=== PATIENT | female | born 1995 ===

== ENCOUNTER → 2017-10-14 | Outpatient (CLI) | payer OTHER ==
[~2017-10-14] MED LIST: CLON1 PO; ESCI10 PO; LEVE500 PO; PRAZ2 PO
[2017-10-17 04:11] LABS: CHLAMYDIA TRACHOMATIS, NAA Positive (Negative); NEISSERIA GONORRHOEAE, NAA Negative (Negative)
== END ==
LOC: LAB SHORT 11:04 → LAB 11:04
PROVIDERS: Registered Nurse Community Health
DX: Z11.3 Encounter for screening for infections with a predominantly sexual mode of transmission (principal); Z12.4 Encounter for screening for malignant neoplasm of cervix
CPT/HCPCS: 87491; 87591

== ENCOUNTER 2017-12-10 09:40 | Observation (INO) | payer OTHER ==
[~2017-12-10] VITALS: Ht 149.9 cm; Wt 59.0 kg
[2017-12-10] MEDS ORDERED: HYDHCL25 PO (10:03)
[2017-12-10] MEDS ORDERED: DOXE10 PO (10:04)
[2017-12-10] MEDS ORDERED: Seroquel400 MG PO (10:04)
[2017-12-10 10:45] LABS: BASOPHILS ABSOLUTE AUTO 0.04 K/mm3 (0.00-0.23); BASOPHILS PERCENT AUTO 1 % (0-2); EOSINOPHILS ABSOLUTE AUTO 0.01 K/mm3 (0.00-0.68); EOSINOPHILS PERCENT AUTO 0 % (0-6); Hematocrit 35.5 % (33.0-51.0); IMMATURE GRAN ABSOLUTE AUTO 0.02 K/mm3 (0.00-0.10); IMMATURE GRAN PERCENT AUTO 0 % (0-1); LYMPHOCYTES ABSOLUTE AUTO 1.86 K/mm3 (0.84-5.20); LYMPHOCYTES PERCENT AUTO 33 % (21-46); MONOCYTES ABSOLUTE AUTO 0.49 K/mm3 (0.16-1.47); MONOCYTES PERCENT AUTO 9 % (4-13); Mean Corpuscular HGB 28.8 pg (26.0-34.0); Mean Corpuscular HGB Conc 33.8 g/dL (31.5-36.5); Mean Corpuscular Volume 85 fL (80-100); Mean Platelet Volume 9.9 fL (9.1-12.4); NEUTROPHILS ABSOLUTE AUTO 3.16 K/mm3 (1.96-9.15); NEUTROPHILS PERCENT AUTO 57 % (41-73); Platelet Count 225 K/mm3 (150-400); RDW Coefficient Variation 12.2 % (11.7-14.2); RDW Standard Deviation 37.8 fL (35.1-46.3); Red Blood Cell Count 4.16 M/mm3 (3.80-5.20); White Blood Cell Count 5.58 K/mm3 (4.00-11.30)
[2017-12-10 10:53] LABS: Bilirubin, Urine Neg (Neg); Blood, Urine Neg (Neg); Glucose Qualitative, Urine Neg (Neg); Ketones, Urine Neg (Neg); Leukocyte Esterase, Urine Neg (Neg); Nitrite, Urine Neg (Neg); Protein, Urine Neg (Neg); Source, Urine Voided; Urobilinogen, Urine NORM (Normal)
[2017-12-10 11:09] LABS: Alanine Aminotransfer (ALT/SGP 14 U/L (12-78); Albumin, Blood 3.8 g/dL (3.4-5.0); Albumin/Globulin Ratio 1.3 (0.8-1.8); Alk Phos 96 U/L (50-136); Anion Gap 10 mmol/L (6-16); Aspartate Aminotrans (AST/SGOT 11 U/L (12-37); Bilirubin, Total 0.7 mg/dL (0.1-1.0); Blood Urea Nitrogen 9 mg/dL (8-24); Bun/Creatinine Ratio 13.6 (12.0-20.0); CO2, Blood 24 mmol/L (21-32); Calcium, Blood 8.2 mg/dL (8.5-10.1); Chloride, Blood 109 mmol/L (98-108); Creatinine, Blood 0.66 mg/dL (0.40-1.00); Ethanol (Alcohol), Blood, Med <3 mg/dL; Glomerular Filtration Rate >60 (60-); Glucose, Blood 102 mg/dL (70-99); Potassium, Blood 3.7 mmol/L (3.5-5.5); Salicylate <1.7 mg/dL (2.8-20.0); Sodium, Blood 143 mmol/L (136-145); Total Protein, Blood 6.8 g/dL (6.4-8.2)
[2017-12-10 11:15] LABS: Thyroid Stimulating Hormone 0.911 uIU/mL (0.360-4.800)
[2017-12-10 11:18] LABS: Appearance, Urine Clear (Clear); Color, Urine Yellow (P-Yellow)
[2017-12-10 11:27] LABS: Acetaminophen, Random <2.0 ug/mL (10.0-30.0)
[2017-12-10 12:12] LABS: U Amphetamine Screen Not Detected; U Barbituate Screen Not Detected; U Benzodiazapine Screen Not Detected; U Cocaine Screen Not Detected; U Methamphetamine Screen Not Detected
[2017-12-10 12:13] LABS: U Buprenorphine Screen Not Detected; U Cannabinoids Screen Not Detected; U Methadone Screen Not Detected; U Opiates Screen Not Detected; U Oxycodone Screen Not Detected; U Phencyclidine Screen Not Detected; U Propoxyphene Screen Not Detected
== END 2017-12-11 07:28 ==
LOC: ER 09:40 → ERHOLD 09:41
PROVIDERS: Emergency Medicine
DX: R45.851 Suicidal ideations (principal); F20.3 Undifferentiated schizophrenia; F43.10 Post-traumatic stress disorder, unspecified; Z88.8 Allergy status to other drugs, medicaments and biological substances; F17.290 Nicotine dependence, other tobacco product, uncomplicated; Z79.899 Other long term (current) drug therapy
CPT/HCPCS: 80053; 81003; 81025; 84443; 85025; 93005; 93010; 99285-25; G0378; G0480; Q3014

== ENCOUNTER 2018-01-29 08:58 | Emergency (ER) | payer OTHER ==
[~2018-01-29] VITALS: Ht 149.9 cm; Wt 62.6 kg
[~2018-01-29 08:58] MED LIST changes: +DOXE10 PO; +HYDHCL25 PO; +Seroquel400 MG PO
[2018-01-29 10:31] LABS: BASOPHILS ABSOLUTE AUTO 0.06 K/mm3 (0.00-0.23); BASOPHILS PERCENT AUTO 1 % (0-2); EOSINOPHILS PERCENT AUTO 0 % (0-6); Hematocrit 37.2 % (33.0-51.0); Hemoglobin 12.6 g/dL (11.5-16.0); IMMATURE GRAN ABSOLUTE AUTO 0.03 K/mm3 (0.00-0.10); IMMATURE GRAN PERCENT AUTO 1 % (0-1); LYMPHOCYTES ABSOLUTE AUTO 1.32 K/mm3 (0.84-5.20); LYMPHOCYTES PERCENT AUTO 20 % (21-46); MONOCYTES ABSOLUTE AUTO 0.55 K/mm3 (0.16-1.47); MONOCYTES PERCENT AUTO 8 % (4-13); Mean Corpuscular HGB Conc 33.9 g/dL (31.5-36.5); Mean Corpuscular Volume 86 fL (80-100); Mean Platelet Volume 9.8 fL (9.1-12.4); NEUTROPHILS PERCENT AUTO 71 % (41-73); Platelet Count 247 K/mm3 (150-400); RDW Coefficient Variation 12.3 % (11.7-14.2); RDW Standard Deviation 38.7 fL (35.1-46.3); Red Blood Cell Count 4.35 M/mm3 (3.80-5.20); White Blood Cell Count 6.66 K/mm3 (4.00-11.30)
[2018-01-29 10:57] LABS: Alanine Aminotransfer (ALT/SGP 24 U/L (12-78); Albumin, Blood 3.8 g/dL (3.4-5.0); Albumin/Globulin Ratio 1.1 (0.8-1.8); Alk Phos 67 U/L (50-136); Anion Gap 5 mmol/L (6-16); Aspartate Aminotrans (AST/SGOT 16 U/L (12-37); Blood Urea Nitrogen 10 mg/dL (8-24); Bun/Creatinine Ratio 18.2 (12.0-20.0); CO2, Blood 25 mmol/L (21-32); Calcium, Blood 8.7 mg/dL (8.5-10.1); Chloride, Blood 108 mmol/L (98-108); Creatinine, Blood 0.55 mg/dL (0.40-1.00); Globulin, Blood 3.5 g/dL (2.2-4.0); Glomerular Filtration Rate >60 (60-); Glucose, Blood 90 mg/dL (70-99); Potassium, Blood 3.9 mmol/L (3.5-5.5); Sodium, Blood 138 mmol/L (136-145); Total Protein, Blood 7.3 g/dL (6.4-8.2)
[2018-01-29 11:21] LABS: Beta HCG, Quantitative, Serum 29082 mIU/mL (0-3)
== END 2018-01-29 11:52 | disposition home or self-care (01) ==
LOC: ER 08:58
PROVIDERS: Physician Assistant
DX: O20.0 Threatened abortion (principal); O99.341 Other mental disorders complicating pregnancy, first trimester; F20.9 Schizophrenia, unspecified; O99.331 Smoking (tobacco) complicating pregnancy, first trimester; F17.290 Nicotine dependence, other tobacco product, uncomplicated; Z79.899 Other long term (current) drug therapy; Z88.8 Allergy status to other drugs, medicaments and biological substances; Z3A.01 Less than 8 weeks gestation of pregnancy
CPT/HCPCS: 36415; 76801; 76817; 80053; 81000; 81025; 84702; 85025; 86850; 86900; 86901; 99284-25

== ENCOUNTER 2020-02-26 19:34 | Emergency (ER) | payer OTHER ==
[~2020-02-26] VITALS: Ht 149.9 cm; Wt 64.9 kg
[2020-02-26 20:33] LABS: BASOPHILS ABSOLUTE AUTO 0.04 K/mm3 (0.00-0.23); BASOPHILS PERCENT AUTO 1 % (0-2); EOSINOPHILS ABSOLUTE AUTO 0.15 K/mm3 (0.00-0.68); EOSINOPHILS PERCENT AUTO 3 % (0-6); Hematocrit 40.8 % (33.0-51.0); Hemoglobin 13.6 g/dL (11.5-16.0); IMMATURE GRAN ABSOLUTE AUTO 0.01 K/mm3 (0.00-0.10); IMMATURE GRAN PERCENT AUTO 0 % (0-1); LYMPHOCYTES ABSOLUTE AUTO 1.78 K/mm3 (0.84-5.20); LYMPHOCYTES PERCENT AUTO 31 % (21-46); MONOCYTES ABSOLUTE AUTO 0.53 K/mm3 (0.16-1.47); MONOCYTES PERCENT AUTO 9 % (4-13); Mean Corpuscular HGB Conc 33.3 g/dL (31.5-36.5); Mean Corpuscular Volume 84 fL (80-100); Mean Platelet Volume 9.8 fL (9.1-12.4); NEUTROPHILS ABSOLUTE AUTO 3.26 K/mm3 (1.96-9.15); NEUTROPHILS PERCENT AUTO 57 % (41-73); Platelet Count 248 K/mm3 (150-400); RDW Coefficient Variation 11.9 % (11.7-14.2); RDW Standard Deviation 36.4 fL (35.1-46.3); Red Blood Cell Count 4.86 M/mm3 (3.80-5.20); White Blood Cell Count 5.77 K/mm3 (4.00-11.30)
[2020-02-26 20:52] LABS: Alanine Aminotransfer (ALT/SGP 19 U/L (12-78); Albumin, Blood 4.2 g/dL (3.4-5.0); Albumin/Globulin Ratio 1.3 (0.8-1.8); Alk Phos 95 U/L (50-136); Anion Gap 4 mmol/L (6-16); Aspartate Aminotrans (AST/SGOT 10 U/L (12-37); Bilirubin, Total 0.9 mg/dL (0.1-1.0); Blood Urea Nitrogen 11 mg/dL (8-24); Bun/Creatinine Ratio 14.6 (12.0-20.0); CO2, Blood 28 mmol/L (21-32); Calcium, Blood 9.5 mg/dL (8.5-10.1); Chloride, Blood 111 mmol/L (98-108); Creatinine, Blood 0.75 mg/dL (0.40-1.00); Globulin, Blood 3.2 g/dL (2.2-4.0); Glomerular Filtration Rate >60 (60-); Glucose, Blood 96 mg/dL (70-99); Potassium, Blood 3.8 mmol/L (3.5-5.5); Sodium, Blood 143 mmol/L (136-145); Total Protein, Blood 7.4 g/dL (6.4-8.2)
== END 2020-02-26 21:29 | disposition home or self-care (01) ==
LOC: ER 19:34
PROVIDERS: Physician Assistant
DX: R51.9 Headache, unspecified (principal); F20.9 Schizophrenia, unspecified; F43.10 Post-traumatic stress disorder, unspecified; F17.290 Nicotine dependence, other tobacco product, uncomplicated; Z88.8 Allergy status to other drugs, medicaments and biological substances; Z79.899 Other long term (current) drug therapy
CPT/HCPCS: 36415; 80053; 85025; 99284

== ENCOUNTER 2020-12-23 11:04 | Emergency (ER) | payer OTHER ==
[~2020-12-23] VITALS: Ht 149.9 cm; Wt 71.7 kg
[~2020-12-23 11:04] MED LIST changes: +LAMOTRIGINE100 M1 PO; +Naprosyn500 MG PO; +SERT100 PO
[2020-12-23 11:40] LABS: BASOPHILS ABSOLUTE AUTO 0.04 K/mm3 (0.00-0.23); BASOPHILS PERCENT AUTO 1 % (0-2); EOSINOPHILS ABSOLUTE AUTO 0.09 K/mm3 (0.00-0.68); EOSINOPHILS PERCENT AUTO 1 % (0-6); Hematocrit 39.1 % (33.0-51.0); Hemoglobin 13.2 g/dL (11.5-16.0); IMMATURE GRAN ABSOLUTE AUTO 0.02 K/mm3 (0.00-0.10); IMMATURE GRAN PERCENT AUTO 0 % (0-1); LYMPHOCYTES ABSOLUTE AUTO 1.58 K/mm3 (0.84-5.20); LYMPHOCYTES PERCENT AUTO 19 % (21-46); MONOCYTES ABSOLUTE AUTO 0.56 K/mm3 (0.16-1.47); MONOCYTES PERCENT AUTO 7 % (4-13); Mean Corpuscular HGB 28.8 pg (26.0-34.0); Mean Corpuscular HGB Conc 33.8 g/dL (31.5-36.5); Mean Corpuscular Volume 85 fL (80-100); Mean Platelet Volume 10.3 fL (9.1-12.4); NEUTROPHILS ABSOLUTE AUTO 5.88 K/mm3 (1.96-9.15); NEUTROPHILS PERCENT AUTO 72 % (41-73); Platelet Count 275 K/mm3 (150-400); RDW Coefficient Variation 12.6 % (11.7-14.2); RDW Standard Deviation 38.5 fL (35.1-46.3); Red Blood Cell Count 4.59 M/mm3 (3.80-5.20); White Blood Cell Count 8.17 K/mm3 (4.00-11.30)
[2020-12-23 12:08] LABS: Source, Urine Clean Catch
[2020-12-23 12:18] LABS: Anion Gap 5 mmol/L (6-16); Blood Urea Nitrogen 8 mg/dL (8-24); Bun/Creatinine Ratio 15.2 (12.0-20.0); CO2, Blood 25 mmol/L (21-32); Calcium, Blood 8.6 mg/dL (8.5-10.1); Chloride, Blood 107 mmol/L (98-108); Creatinine, Blood 0.53 mg/dL (0.40-1.00); Glomerular Filtration Rate >60 (60-); Glucose, Blood 84 mg/dL (70-99); Potassium, Blood 4.6 mmol/L (3.5-5.5); Sodium, Blood 137 mmol/L (136-145)
[2020-12-23 12:21] LABS: Beta HCG, Quantitative, Serum 89823 mIU/mL (0-3)
[2020-12-23 12:26] LABS: Appearance, Urine Clear (Clear); Bilirubin, Urine Neg (Neg); Blood, Urine Neg (Neg); Color, Urine Yellow (P-Yellow); Glucose Qualitative, Urine Neg (Neg); Ketones, Urine Neg (Neg); Leukocyte Esterase, Urine Neg (Neg); Nitrite, Urine Neg (Neg); Protein, Urine Neg (Neg); Specific Gravity, Urine 1.015 (1.003-1.022); Urobilinogen, Urine NORM (Normal); pH, Urine 6.5 (5.0-8.0)
[2020-12-23] MEDS ORDERED: PRENATAL TABLE1 EAC2 PO (12:35)
[2020-12-23] MEDS ORDERED: DICLEGIS DR 101 EAC1 PO (13:22)
== END 2020-12-23 13:38 | disposition home or self-care (01) ==
LOC: ER 11:04
PROVIDERS: Physician Assistant
DX: O99.891 Other specified diseases and conditions complicating pregnancy (principal); R10.9 Unspecified abdominal pain; M54.5 Low back pain; O21.9 Vomiting of pregnancy, unspecified; Z3A.01 Less than 8 weeks gestation of pregnancy; Z88.8 Allergy status to other drugs, medicaments and biological substances; Z79.899 Other long term (current) drug therapy
CPT/HCPCS: 36415; 80048; 81003; 84702; 85025; 99284

== ENCOUNTER → 2021-06-27 | Outpatient (CLI) | payer OTHER ==
[~2021-06-27] MED LIST changes: +DICLEGIS DR 101 EAC1 PO; +PRENATAL TABLE1 EAC2 PO
== END | disposition home or self-care (01) ==
LOC: LAB SHORT 11:36 → LAB 11:36
DX: Z34.83 Encounter for supervision of other normal pregnancy, third trimester (principal)
CPT/HCPCS: 87081; 87150

== ENCOUNTER 2021-07-28 04:44 | Inpatient (IN) | payer OTHER ==
[~2021-07-28] VITALS: Ht 149.9 cm; Wt 73.2 kg
[2021-07-28] MEDS ORDERED: METF500 PO (05:09)
[2021-07-28] MEDS ORDERED: FERSU300 PO (05:09)
[2021-07-28 05:44] LABS: BASOPHILS ABSOLUTE AUTO 0.03 K/mm3 (0.00-0.23); BASOPHILS PERCENT AUTO 0 % (0-2); EOSINOPHILS ABSOLUTE AUTO 0.09 K/mm3 (0.00-0.68); EOSINOPHILS PERCENT AUTO 1 % (0-6); Hematocrit 33.1 % (33.0-51.0); Hemoglobin 10.3 g/dL (11.5-16.0); IMMATURE GRAN ABSOLUTE AUTO 0.18 K/mm3 (0.00-0.10); IMMATURE GRAN PERCENT AUTO 2 % (0-1); LYMPHOCYTES ABSOLUTE AUTO 2.08 K/mm3 (0.84-5.20); LYMPHOCYTES PERCENT AUTO 23 % (21-46); MONOCYTES ABSOLUTE AUTO 0.75 K/mm3 (0.16-1.47); MONOCYTES PERCENT AUTO 8 % (4-13); Mean Corpuscular HGB 22.9 pg (26.0-34.0); Mean Corpuscular HGB Conc 31.1 g/dL (31.5-36.5); Mean Corpuscular Volume 74 fL (80-100); Mean Platelet Volume 11.2 fL (9.1-12.4); NEUTROPHILS ABSOLUTE AUTO 5.77 K/mm3 (1.96-9.15); NEUTROPHILS PERCENT AUTO 65 % (41-73); Platelet Count 196 K/mm3 (150-400); RDW Coefficient Variation 15.6 % (11.7-14.2); RDW Standard Deviation 41.5 fL (35.1-46.3); Red Blood Cell Count 4.49 M/mm3 (3.80-5.20)
[2021-07-28 06:51] LABS: Influenza A, PCR NEGATIVE (NEGATIVE); Influenza B, PCR NEGATIVE (NEGATIVE); Resp Syncytial Virus, PCR NEGATIVE (NEGATIVE); SARS-Cov-2 (COVID-19) PCR, MMC NEGATIVE (NEGATIVE)
[2021-07-28 21:29] LABS: PCO2 Cord - Venous 45.8 mmHg (40-50); PO2 Cord - Venous 25.9 mmHg (28-32)
[2021-07-29 05:28] LABS: Hemoglobin 10.4 g/dL (11.5-16.0); Mean Corpuscular HGB 22.8 pg (26.0-34.0); Mean Corpuscular HGB Conc 30.6 g/dL (31.5-36.5); Mean Corpuscular Volume 75 fL (80-100); Platelet Count 199 K/mm3 (150-400); RDW Coefficient Variation 15.5 % (11.7-14.2); RDW Standard Deviation 41.7 fL (35.1-46.3); Red Blood Cell Count 4.56 M/mm3 (3.80-5.20); White Blood Cell Count 17.23 K/mm3 (4.00-11.30)
[2021-07-29 05:33] LABS: Mean Platelet Volume 11.4 fL (9.1-12.4)
--- NOTE | 2021-07-30 00:51 | NUR ---
DOCK SUPERVISOR NOTIFED THIS NURSE OF LOW BP. TALKED TO PT, SHE STATED THAT SHE DOSE "SEE STARS" WHEN CHANGING POSITIONS. PT STATED THAT HER NORMAL BP RUNS LOW. TALKED WITH PT ABOUT IMPORTANCE OF BEING CAREFULL WHEN CHANGING POSITIONS, NOT GETTING UP OUT OF BED QUICKLY. BP TAKEN AGAIN. PT DENIES BEING SOB, BLEEDING W/IN NORMAL RANGE, FUNDUS FIRM AND MIDLINE.
== END 2021-07-30 11:05 | disposition home or self-care (01) | DRG 807 ==
LOC: OBS 04:44 → BC 04:45 → OBS 04:49 → BC 04:51
PROVIDERS: Obstetrics & Gynecology; ADMIT Advanced Practice Midwife
PROC: 10E0XZZ Delivery of Products of Conception, External Approach (ICD-10-PCS; principal; 2021-07-28)
PROC: 10907ZC Drainage of Amniotic Fluid, Therapeutic from Products of Conception, Via Natural or Artificial Opening (ICD-10-PCS; 2021-07-28)
PROC: 10H07YZ Insertion of Other Device into Products of Conception, Via Natural or Artificial Opening (ICD-10-PCS; 2021-07-28)
PROC: 3E033VJ Introduction of Other Hormone into Peripheral Vein, Percutaneous Approach (ICD-10-PCS; 2021-07-28)
PROC: 3E0R33Z Introduction of Anti-inflammatory into Spinal Canal, Percutaneous Approach (ICD-10-PCS; 2021-07-28)
PROC: 3E0R3BZ Introduction of Anesthetic Agent into Spinal Canal, Percutaneous Approach (ICD-10-PCS; 2021-07-28)
PROC: 00HU33Z Insertion of Infusion Device into Spinal Canal, Percutaneous Approach (ICD-10-PCS; 2021-07-28)
DX: O24.425 Gestational diabetes mellitus in childbirth, controlled by oral hypoglycemic drugs (principal); Z37.0 Single live birth; O99.02 Anemia complicating childbirth; Z20.822 Contact with and (suspected) exposure to COVID-19; Z3A.38 38 weeks gestation of pregnancy; O99.334 Smoking (tobacco) complicating childbirth; O66.0 Obstructed labor due to shoulder dystocia; F17.200 Nicotine dependence, unspecified, uncomplicated; D64.9 Anemia, unspecified; O99.344 Other mental disorders complicating childbirth; Z67.40 Type O blood, Rh positive; F31.9 Bipolar disorder, unspecified; J45.909 Unspecified asthma, uncomplicated; O99.52 Diseases of the respiratory system complicating childbirth; Z88.8 Allergy status to other drugs, medicaments and biological substances; Z90.49 Acquired absence of other specified parts of digestive tract; Z79.84 Long term (current) use of oral hypoglycemic drugs; Z79.899 Other long term (current) drug therapy
CPT/HCPCS: 0241U; 36415; 51702; 82803; 82947; 85025; 85027; 86850; 86900; 86901; A9270; J1885; J2001; J2210; J2405; J3010; J7120

== ENCOUNTER 2022-08-26 17:29 | Inpatient (IN) | payer OTHER ==
[~2022-08-26] VITALS: Ht 149.9 cm; Wt 69.8 kg
[~2022-08-26 17:29] MED LIST changes: +FERSU300 PO; +METF500 PO
[2022-08-26 17:53] LABS: BASOPHILS ABSOLUTE AUTO 0.02 K/mm3 (0.00-0.23); BASOPHILS PERCENT AUTO 0 % (0-2); EOSINOPHILS ABSOLUTE AUTO 0.11 K/mm3 (0.00-0.68); EOSINOPHILS PERCENT AUTO 2 % (0-6); Hematocrit 39.9 % (33.0-51.0); Hemoglobin 13.1 g/dL (11.5-16.0); IMMATURE GRAN ABSOLUTE AUTO 0.03 K/mm3 (0.00-0.10); IMMATURE GRAN PERCENT AUTO 1 % (0-1); LYMPHOCYTES ABSOLUTE AUTO 0.76 K/mm3 (0.84-5.20); LYMPHOCYTES PERCENT AUTO 13 % (21-46); MONOCYTES ABSOLUTE AUTO 0.53 K/mm3 (0.16-1.47); MONOCYTES PERCENT AUTO 9 % (4-13); Mean Corpuscular HGB Conc 32.8 g/dL (31.5-36.5); Mean Corpuscular Volume 82 fL (80-100); Mean Platelet Volume 9.4 fL (9.1-12.4); NEUTROPHILS ABSOLUTE AUTO 4.51 K/mm3 (1.96-9.15); NEUTROPHILS PERCENT AUTO 76 % (41-73); Platelet Count 225 K/mm3 (150-400); RDW Coefficient Variation 12.7 % (11.7-14.2); RDW Standard Deviation 38.4 fL (35.1-46.3); Red Blood Cell Count 4.86 M/mm3 (3.80-5.20); White Blood Cell Count 5.96 K/mm3 (4.00-11.30)
[2022-08-26 18:25] LABS: Albumin/Globulin Ratio 1.2 (0.8-1.8); Bun/Creatinine Ratio 18.9 (12.0-20.0); Calcium, Blood 8.1 mg/dL (8.5-10.1); Creatinine, Blood 0.58 mg/dL (0.40-1.00); Globulin, Blood 3.2 g/dL (2.2-4.0); Potassium, Blood 3.9 mmol/L (3.5-5.5); Total Protein, Blood 7.2 g/dL (6.4-8.2)
[2022-08-26 20:26] LABS: Source, Urine Clean Catch
[2022-08-26 20:28] LABS: Bilirubin, Urine Neg (Neg); Blood, Urine 1+ (Neg); Glucose Qualitative, Urine Neg (Neg); Ketones, Urine Neg (Neg); Leukocyte Esterase, Urine 1+ (Neg); Nitrite, Urine Neg (Neg); Protein, Urine 1+ (Neg); Specific Gravity, Urine 1.005 (1.003-1.022); Urobilinogen, Urine NORM (Normal)
[2022-08-26 20:37] LABS: Appearance, Urine Hazy (Clear); Color, Urine Pale Yellow (P-Yellow)
[2022-08-26 20:38] LABS: Bacteria Few /hpf; Red Blood Cells, Urine 0-2 /hpf (0-2); Squamous Epithelial Cells Mod /hpf (Few); White Blood Cells, Urine 0-2 /hpf (0-5)
[2022-08-26 20:51] LABS: U Amphetamine Screen Not Detected; U Barbituate Screen Not Detected; U Benzodiazapine Screen Not Detected; U Buprenorphine Screen Not Detected; U Cannabinoids Screen Not Detected; U Cocaine Screen Not Detected; U Methadone Screen Not Detected; U Methamphetamine Screen Not Detected; U Opiates Screen Not Detected; U Oxycodone Screen Not Detected; U Phencyclidine Screen Not Detected; U Propoxyphene Screen Not Detected
--- NOTE | 2022-08-26 21:52 | NUR ---
PT ARRIVES TO ICU ROOM 6 FROM ER @6372. REPORT RECIEVED FROM BRADY CARRANZA. TRANSFERRED TO ICU BED EQUIPPED W/SEIZURE PADS. PT IS A&O X4. ISAC IS AT BEDSIDE. CONTINUOUS CARDIAC MONITORING. NSR 80'S, SBP STABLE, MAP >65, RR <20, SPO2 >94%. IV ACCESS: 20GA RAC PATENT W/SALINE LOCK, 20GA RFA PATENT W/SALINE LOCK. PT AND FAMILY ORIENTED TO UNIT AND CALL LIGHT. HOME MEDICATIONS SENT W/.
[2022-08-26] MEDS ORDERED: LAMO100 (22:38)
[2022-08-26] MEDS ORDERED: CLON.5 PO (22:41)
[2022-08-26] MEDS ORDERED: SERT100 PO (22:42)
--- NOTE | 2022-08-26 22:48 | NUR ---
UPDATE PT HAD TONIC-CLONIC SEIZURE THAT LASTED APPROX 30 SECONDS. THIS RN POSITIONED PT ON RIGHT SIDE W/SUCTION AVAILABLE. POSTICAL PHASE LASTED ABOUT A MINUTE. PT WAS REORIENTED AND WAS ANSWERING QUESTIONS APPROPRIATELY. AT BEDSIDE.
[2022-08-27 03:18] LABS: BASOPHILS ABSOLUTE AUTO 0.02 K/mm3 (0.00-0.23); BASOPHILS PERCENT AUTO 0 % (0-2); EOSINOPHILS ABSOLUTE AUTO 0.16 K/mm3 (0.00-0.68); EOSINOPHILS PERCENT AUTO 3 % (0-6); Hematocrit 35.9 % (33.0-51.0); Hemoglobin 11.9 g/dL (11.5-16.0); IMMATURE GRAN ABSOLUTE AUTO 0.02 K/mm3 (0.00-0.10); IMMATURE GRAN PERCENT AUTO 0 % (0-1); LYMPHOCYTES ABSOLUTE AUTO 1.13 K/mm3 (0.84-5.20); LYMPHOCYTES PERCENT AUTO 24 % (21-46); MONOCYTES ABSOLUTE AUTO 0.58 K/mm3 (0.16-1.47); MONOCYTES PERCENT AUTO 12 % (4-13); Mean Corpuscular HGB 27.1 pg (26.0-34.0); Mean Corpuscular HGB Conc 33.1 g/dL (31.5-36.5); Mean Corpuscular Volume 82 fL (80-100); Mean Platelet Volume 9.3 fL (9.1-12.4); NEUTROPHILS ABSOLUTE AUTO 2.79 K/mm3 (1.96-9.15); NEUTROPHILS PERCENT AUTO 60 % (41-73); Platelet Count 197 K/mm3 (150-400); RDW Coefficient Variation 12.7 % (11.7-14.2); RDW Standard Deviation 38.3 fL (35.1-46.3); Red Blood Cell Count 4.39 M/mm3 (3.80-5.20)
[2022-08-27 03:35] LABS: Albumin, Blood 3.4 g/dL (3.4-5.0); Albumin/Globulin Ratio 1.2 (0.8-1.8); Bilirubin, Total 0.7 mg/dL (0.1-1.0); Bun/Creatinine Ratio 19.5 (12.0-20.0); Calcium, Blood 7.3 mg/dL (8.5-10.1); Creatinine, Blood 0.51 mg/dL (0.40-1.00); Globulin, Blood 2.9 g/dL (2.2-4.0); Magnesium, Blood 2.2 mg/dL (1.6-2.4); Potassium, Blood 3.5 mmol/L (3.5-5.5); Total Protein, Blood 6.3 g/dL (6.4-8.2)
--- NOTE | 2022-08-27 05:46 | NUR ---
SUMMARY NEURO/PSYCH/MOBILITY: PT HAD ONE SEIZURE DURING SHIFT (SEE NOTE), CONFUSED DURING POSTICTAL STATE BUT REORIENTED. A&O X4, RESTING COMFORTABLY, AROUSABLE TO VERBAL STIMULI. PT ABLE TO AMBULATE W/NURSE SBA TO COMMODE. ABLE TO MAKE NEEDS KNOWN. PLEASANT AND COOPERATIVE W/CARE. PT HAD PAIN IN HER ABDOMEN W/VOMITING AND NAUSEA. MEDICATED PER EMAR. NO FURTHER VOMITING AND SOME RELIEF FROM NAUSEA AND ABDOMINAL PAIN. TMAX 98.5. PERRL. RESP: RR 20'S, SPO2 >94% ON RA. LUNGS CLEAR THROUGHOUT. CARDIAC: CONTINUOUS CARDIAC MONITORING. NSR 80'S, SBP STABLE, MAP >65. PULSES STRONG AND EQUAL. GI: VOMITED TWICE BILE TINGED LIQUID. MEDICATED PER EMAR. NO BM THIS SHIFT. PT STATES SHE HAS ABDOMINAL PAIN AND HAS HAD A "STOMACH BUG" FOR THE PAST FEW DAYS. : PT ABLE TO AMBULATE TO THE COMMODE AND VOID W/O DIFFICULTY. SKIN: GOOD OVERALL CONDITION. IV ACCESS: 20GA RAC PATENT W/SALINE LOCK. 20GA RFA 20GA W/SALINE LOCK.
--- NOTE | 2022-08-27 10:26 | NUR ---
CARE OF PT ASSUMED AT 0700. PT SLEEPING, AWAKENS TO VOICE, DROWSY. DENIES C/O NAUSEA. C/O LOWER ABD CRAMPS, PT STATES IT FEELS LIKE SHE NEED TO HAVE A BOWEL MOVEMENT. DR PARISI CALLED FOR DIET ORDER, PT REQUESTED FOOD AND WATER. DIET PLACED. AFTER A FEW BITES OF BREAKFAST PT VOMITED 40CC. ZOFRAN GIVEN. PT SBA TO TOILET W 2 LIQUID BM'S. WILL HOLD FOOD FOR NOW. LR STARTED AT 100CC/HR. BOTH DR PARISI AND DR ALBERTS IN TO SEE PT. NO SEIZURE ACTIVITY THIS SHIFT. PT STATES SHE IS RECOVERING FROM MASTITIS AND IS BREAST FEEDING, PT CHANGED TO PCU STATUS.
--- NOTE | 2022-08-27 12:20 | NUR ---
PT SLEEPING W/O COMPLAINTS. NEURO ASSESSMENT WNL.
--- NOTE | 2022-08-27 12:44 | NUR ---
PT USED CALL LIGHT WHICH WAS IMMEDIATLEY ANSWERED. PT FOUND WITH CHEST FORWARD, MINIMALLY SHAKING, WITH FOAM IN MOUTH. GRAPHICS COORDINATOR CALLED TO BEDSIDE. SEIZURE ACTIVITY LASTED LESS THAN 30SEC. VALIUM 5MG GIVEN. PT ABLE TO FOLLOW COMMANDS AND ANSWER QUESTIONS APPROPRIATELY FOLLOWING SEIZURE ACTIVITY. DR ALBERTS IN TO SEE PT SHORTLY AFTER SEIZURE. DENTAL HYGIENIST AT BEDSIDE NOW.
--- NOTE | 2022-08-27 13:49 | NUR ---
PT WITH EMESIS, COMPAZINE GIVEN W GOOS EFFECT. BREAST PUMP CHECKED OUT FROM [facility] FOR PT. PT ABLE TO PUMP. PT'S AT BEDSIDE.
--- NOTE | 2022-08-27 14:47 | NUR ---
PT STATES THAT SHE IS VERY EMBARRASSED OF ANXIOUS OVER INCONTINENCE OF STOOLS, PT TEARFUL WELL. PT WORRIED SHE WILL HAVE AN "ACCIDENT" IN FRONT OF HER . PT COMFORTED/REASSURED, OPTIONS REVIEWED WITH PT INCLUDING RECTAL TUBE. PT REQUESTED TO TRY RECTAL TUBE. RECTAL TUBE PLACED WITHOUT DIFFICULTLY AND DRAINING LIQUID STOOL. STOOL VERY WATERY.
--- NOTE | 2022-08-27 16:15 | NUR ---
PT STATES SHE IS FEELING BETTER. ABLE TO KATEY SMALL SNACK. RECTAL TUBE DC'D. STOOL SAMPLE SENT TO R/O CDIFF
--- NOTE | 2022-08-27 19:13 | NUR ---
PT FOUND STANDING NEXT TO THE BED, APPEARED SLIGHTLY CONFUSED, STATED SHE NEEDED TO"PEE", THEN STATED, "NO I DONT NEED TO PEE I NEED TO THROW UP". PT SAT AT EDGE OF BED WHERE SHE VOMITED 500CC FLUID/FOOD. COMPAZINE GIVEN. SOON AFTER PT STATED, "I DONT FEEL WELL". PT HELPED TO SIDE LAYING POSITION AND HAD SEIZURE ACTIVITY THAT LASTED A LITTLE OVER 30SEC. VALIUM 5MG GIVEN. SEIZURE ACTIVITY WAS VERY SIMULAR TO THIS AM'S SEIZURE. MILD MUSCLE CONTRACTIONS MAINLY NOTED TO CHEST AREA, SOME RIGIDITY TO LIMBS, NECK FLEXED BACK, FOAMING/SPITTING AT MOUTH. PT CONFUSED UPON WAKING UP, ASKING "WHERE AM I". WHEN RE-ORIENTED, PT HAD THOUGHT SHE WAS "BACK AT [facility] AGAIN" AFTER BEING DISCHARGED HOME. PT STARTING TO CLEAR. DR PARISI CALLED, NIKHILRA DOSE INCREASED. NICOTINE PATCH ORDERED PER PT REQUEST.
[2022-08-27 22:22] LABS: Adenovirus F 40/41 Not Detected (NOT DETECT); Astrovirus Detected (NOT DETECT); Campylobacter Sp Not Detected (NOT DETECT); Cryptosporidium Not Detected (NOT DETECT); Cyclospora Cayetanensis Not Detected (NOT DETECT); E. Coli O157 Not Detected (NOT DETECT); Entamoeba Histolytica Not Detected (NOT DETECT); Enteroaggregative E. coli-EAEC Not Detected (NOT DETECT); Enteropathogenic E. coli-EPEC Not Detected (NOT DETECT); Enterotoxigenic E. coli-ETEC Not Detected (NOT DETECT); Giardia Lamblia Not Detected (NOT DETECT); Norovirus GI/GII Not Detected (NOT DETECT); Plesiomonas Shigelloides Not Detected (NOT DETECT); Rotavirus A Not Detected (NOT DETECT); Salmonella Sp Not Detected (NOT DETECT); Sapovirus Not Detected (NOT DETECT); Shiga Toxin-prod E. coli-STEC Not Detected (NOT DETECT); Shigella/Enteroin E. coli-EIEC Not Detected (NOT DETECT); Vibrio Cholerae Not Detected (NOT DETECT); Vibrio Sp Not Detected (NOT DETECT); Yersinia Enterocolitica Not Detected (NOT DETECT)
--- NOTE | 2022-08-28 05:25 | NUR ---
RIGHT AC IV LINE WAS VERY PAINFUL FOR PATIENT AND WAS REMOVED D/T NOT BEING ABLE TO RUN IV FLUIDS. DR HARTMAN INFORMED OF PT NOT HAVING ANY IV LINES AT THIS TIME.
[2022-08-28 05:33] LABS: Albumin, Blood 3.1 g/dL (3.4-5.0); Anion Gap 8 mmol/L (6-16); Blood Urea Nitrogen 7 mg/dL (8-24); Bun/Creatinine Ratio 15.8 (12.0-20.0); CO2, Blood 16 mmol/L (21-32); Calcium, Blood 8.2 mg/dL (8.5-10.1); Chloride, Blood 114 mmol/L (98-108); Creatinine, Blood 0.44 mg/dL (0.40-1.00); Glomerular Filtration Rate 134 (60-); Glucose, Blood 86 mg/dL (70-99); Phosphorus, Blood 1.9 mg/dL (2.5-4.9); Sodium, Blood 138 mmol/L (136-145)
--- NOTE | 2022-08-28 06:03 | NUR ---
END OF SHIFT SUMMARY PT A/O X4. NO ACUTE EVENTS TO REPORT. N/V HAS SUBSIDED WITH NO EPISODES THIS SHIFT. NO SEIZURES THIS SHIFT WELL. PT IS CURRENTLY SITTING WITH NO IV'S AT THIS TIME. LR ON SB. SPO2 >93% ON RA. SBP 90'S-100'S. WILL CONTINUE TO MONITOR PT UNTIL REPORT IS GEVEN TO DAY SHIFT RN.
[2022-08-28 06:40] LABS: BASOPHILS ABSOLUTE AUTO 0.03 K/mm3 (0.00-0.23); BASOPHILS PERCENT AUTO 1 % (0-2); EOSINOPHILS ABSOLUTE AUTO 0.14 K/mm3 (0.00-0.68); EOSINOPHILS PERCENT AUTO 3 % (0-6); Hematocrit 35.4 % (33.0-51.0); Hemoglobin 11.9 g/dL (11.5-16.0); IMMATURE GRAN ABSOLUTE AUTO 0.01 K/mm3 (0.00-0.10); IMMATURE GRAN PERCENT AUTO 0 % (0-1); LYMPHOCYTES ABSOLUTE AUTO 1.26 K/mm3 (0.84-5.20); LYMPHOCYTES PERCENT AUTO 23 % (21-46); MONOCYTES ABSOLUTE AUTO 0.53 K/mm3 (0.16-1.47); MONOCYTES PERCENT AUTO 10 % (4-13); Mean Corpuscular HGB 27.2 pg (26.0-34.0); Mean Corpuscular HGB Conc 33.6 g/dL (31.5-36.5); Mean Corpuscular Volume 81 fL (80-100); Mean Platelet Volume 9.7 fL (9.1-12.4); NEUTROPHILS ABSOLUTE AUTO 3.47 K/mm3 (1.96-9.15); NEUTROPHILS PERCENT AUTO 64 % (41-73); Platelet Count 225 K/mm3 (150-400); RDW Coefficient Variation 12.7 % (11.7-14.2); RDW Standard Deviation 37.2 fL (35.1-46.3); Red Blood Cell Count 4.37 M/mm3 (3.80-5.20); White Blood Cell Count 5.44 K/mm3 (4.00-11.30)
--- NOTE | 2022-08-28 08:20 | NUR ---
CARE OF PT ASSUMED AT 0700. PT AWAKE AND ALERT. SBA TO TOILET. PT IS STILL HAVING LIQUID STOOLS, BUT IS NOW CONTINENT, AND STATES THEY ARE "GETTING BETTER". PT DENIES NAUSEA. C/O HEADACHE 01/03. POWERGLIDE PLACED TO MADI, PT KATEY WELL. DR ALBERTS IN TO SEE PT THIS AM. PT REQUEST LAMICTAL, WHICH HE WILL LOOK INTO. PHOS 1.9, HE WILL ORDER SOMETHING FOR THIS WELL. BP IMPROVED THIS AM, PT AFEBRILE. OVERALL PT IS MORE AWAKE/ALERT THIS AM, STATES SHE IS FEELING BETTER, SMILING.
--- NOTE | 2022-08-28 10:05 | NUR ---
UPDATE: PT TRANSFERED OVER FROM ICU, ARRIVING AT APPROX 0900. AT APPROX 0940, PT REQUESTS TO USE RESTROOM, AMBULATES W/SLOW, STEADY GAIT TO RESTROOM, PULLS CORD WHEN DONE. UPON STANDING AND BEGINNING TO AMBULATE BACK TO BED PT REPORTS FEELING DIZZY AND "MY LIPS ARE TINGLING". PT ASSISTED W/SITTING BACK ON TOILET AND HELD WHILE SEIZURE LIKE ACTIVITY ENSUED FOR APPROX 10-15 SECONDS, HEAD PROTECTED, POSTICTAL PHASE APPROX 30 SEC, THEN ANOTHER SEIZURE THAT LASTED APPROX 20 SECONDS W/AN APPROXIMATE 30 SEC POSTICTAL PHASE. PT MINIMALLY CONFUSED, UPSET RE: SEIZURE ACTIVITY AND NOT BEING ABLE TO DISCHARGE HOME TODAY. PROVIDER NOTIFIED VIA TELEPHONE, PT MEDICATED W/VALIUM AND HOME MED LAMICTAL PER ORDERS. PT TRANSFERED TO W/C THEN ASSISTED BACK TO BED, SEIZURE PADS IN PLACE. VS STABLE.
--- NOTE | 2022-08-28 12:10 | NUR ---
UPDATE AND TRANSFER: SEE OTHER RN NOTE FOR ADDITIONAL DETAILS: PT C/O HEADACHE, THEN STARTED VOMITING AND SEIZURE LIKE ACTIVITY W/APNEIC PERIODS AND MINIMAL TIME BETWEEN SEIZURES. MULTIPLE STAFF AND RT IN ROOM. RAPID RESPONSE CALLED. PT TRANSFERED BACK TO ICU, REPORT GIVEN TO TERE GONSALES AT BEDSIDE TO RECEIVE PT.
--- NOTE | 2022-08-28 12:31 | NUR ---
PT TRANSFERED BACK TO ICU AT 1215. PT APPEARED TO HAVE SEIZURE ACTIVITY WHILE IN ICU ROOM PRIOR TO BEING TRANSFERED TO ICU BED. ATIVAN 4MG ORDERED BY DR SOOD WHO WAS AT BEDSIDE, THEN HELD BECAUSE SEIZURE ACTIVITY STOPPED. PT AWAKE, SLIGHTLY DRWOSY. ORIENTED X3. DR ALBERTS AND DR PARISI AT BEDSIDE DURING TRANSFER WELL. ATIVAN PRN ORDERS PLACED. DR ALBERTS IS CALLING NEURO. VSS. SATS 97% ON RA.
--- NOTE | 2022-08-28 13:00 | NUR ---
LATE ENTRY Rn to room responding to call light at approx 1200, pt reports headache "brain on fire" and vison changes, notified primary rn. Back to room, pt having episode of emesis, second rn to room, requested ondansetron, pt continues to have emesis, approx 1 minute later pt started convulsing, patient turned on side, and suctions as able. Called for assistance, ondansetrone given rapid called, MD to room, new order for ativan 1mg iv given, apnic episodes noted, RT to bedside providing o2 and bagging when needed. Pt had additional convulsion during this time. Primary MD at bedside, additional order for ativan 1 mg to be given.
--- NOTE | 2022-08-28 13:38 | NUR ---
SEIZURE ACTIVITY STARTED AGAIN AROUND 1314. PT UNRESPONSIVE WITH TONIC/CLONIC MOVEMENT. PT VOMITING SMALL AMT DURING SEIZURE ACTIVITY, MULTIPLE NURSES AT BEDSIDE. EYES WITH HARD GAZE UP AND LEFT. EACH SEIZURE LASTED APPROX 1MIN. A TOTAL OF ATIVAN 4MG GIVEN. COMPAZINE GIVEN. KEPPRA 2GM GIVEN. SODIUM PHOS STARTED. POSSIBLE TRANSFER FOR NEURO CARE. REPORT GIVEN TO JIL CARRANZA. PT AWAKE AND ALERT AT THIS TIME.
--- NOTE | 2022-08-28 14:06 | NUR ---
ASSUMED CARE.... ASSUMED CARE OF PT FROM TERE GONSALES AT 1330. PT IS A&Ox4, PER REPORT PT HAS HAD 2 SEIZURES SINCE RETURNING TO THE UNIT FROM PCU. DURING THIS RN'S ASSESSMENT THE PT WAS AWAKE AND ALERT ASKING ABOUT BEING ABLE TO EAT. PT WAS EDUCATED ON HER NPO STATUS AND WHY IT WAS NEEDED AT THIS TIME. VS STABLE. AT 1400 THE PT WAS SITTING UP IN HER BED ON HER PHONE, SHE HAD ASKED TO HAVE THE LIGHTS TURNED OFF TO SHE COULD REST. THIS RN LEFT THE ROOM AT 1402 THE PT STARTED TO HAVE VERY LOUD HICCUPS, THIS RN WENT INTO THE ROOM TO ASSESS THE PT, SHE WAS HICCUPING BUT NOT RESPONDING TO QUESTIONS, THIS RN ATTEMPTED PAINFUL STIMULI BUT SHE DID NOT RESPOND. THE PT CONTINUED TO HAVE VERY LOUD AGRESSIVE HICCUPS THEN SHE STARTED TO DRY HEAVE, THE PT CONTINUED TO BE UNRESPONSIVE SHE HAD A SMALL AMOUNT OF CLEAR EMEISIS, SUCTION WAS PROVIDED AND SHE WAS TURNED ONTO HER SIDE. WHILE SHE WAS DRY HEAVING THE PT STARTED TO HAVE SEIZURE LIKE ACTIVITY WITH HER BODY JERKING. WILL CONTINUE TO MONITOR.
--- NOTE | 2022-08-28 16:22 | NUR ---
PT TRANSFER TO [facility].... PT LEFT [facility]IA [facility] FOR [facility]. PT'S VS STABLE. PT'S AT THE BEDSIDE, THE PT TOOK ALL OF THE PT'S BELONGINGS.
--- NOTE | 2022-08-28 16:54 | NUR ---
REPORT CALLED.... SBAR WAS CALLED TO RUTH CARRANZA AT [facility]. PT LEFT AT 7288.
== END 2022-08-28 16:34 | disposition short-term general hospital (02) | DRG 101 ==
LOC: ER 17:29 → ICUW 20:37 → ICUE 21:50 → PCU 08-28 08:58 → ICUE 08-28 12:21
PROVIDERS: Emergency Medicine; Family Medicine; Internal Medicine; ADMIT Student in an Organized Health Care Education/Training Program
DX: G40.401 Other generalized epilepsy and epileptic syndromes, not intractable, with status epilepticus (principal); A08.32 Astrovirus enteritis; E11.9 Type 2 diabetes mellitus without complications; F31.9 Bipolar disorder, unspecified; N61.0 Mastitis without abscess; L40.9 Psoriasis, unspecified; G47.00 Insomnia, unspecified; F19.10 Other psychoactive substance abuse, uncomplicated; F43.10 Post-traumatic stress disorder, unspecified; F20.9 Schizophrenia, unspecified; Z88.8 Allergy status to other drugs, medicaments and biological substances; Z79.899 Other long term (current) drug therapy; Z79.84 Long term (current) use of oral hypoglycemic drugs; Z90.49 Acquired absence of other specified parts of digestive tract; Z87.891 Personal history of nicotine dependence
CPT/HCPCS: 36415; 80053; 80069; 81001; 81025; 83735; 84146; 85025; 87507; 93005; 93010; 96365; 96375; 96376; 99285-25; A9270; J0780; J1650; J1885; J1953; J2060; J2405; J3360; J7030; J7060; J7120

== ENCOUNTER 2022-08-31 22:27 | Emergency (ER) | payer OTHER ==
[~2022-08-31] VITALS: Ht 149.9 cm; Wt 72.6 kg
[~2022-08-31 22:27] MED LIST changes: +CLON.5 PO; +LAMO100
[2022-08-31 23:24] LABS: Bun/Creatinine Ratio 12.2 (12.0-20.0); Calcium, Blood 9.1 mg/dL (8.5-10.1); Creatinine, Blood 0.57 mg/dL (0.40-1.00); Potassium, Blood 3.5 mmol/L (3.5-5.5); Prolactin 10.5 ng/mL
== END 2022-09-01 00:53 | disposition home or self-care (01) ==
LOC: ER 22:27
PROVIDERS: Student in an Organized Health Care Education/Training Program
DX: R56.9 Unspecified convulsions (principal); G47.00 Insomnia, unspecified; Z88.8 Allergy status to other drugs, medicaments and biological substances; Z79.899 Other long term (current) drug therapy; Z87.891 Personal history of nicotine dependence
CPT/HCPCS: 80048; 84146; 96374; 99284-25; J2060; J2765

== ENCOUNTER 2022-09-20 02:09 | Emergency (ER) | payer OTHER ==
[~2022-09-20] VITALS: Ht 167.6 cm; Wt 72.6 kg
[2022-09-20 02:18] VITALS: BP 132/71
[2022-09-20] MEDS ORDERED: IBUP800 PO (03:50)
[2022-09-20] MEDS ORDERED: ONDA4ODT MM (03:50)
[2022-09-20] MEDS ORDERED: Acetaminophen500 MG PO (03:50)
== END 2022-09-20 04:37 | disposition home or self-care (01) ==
LOC: ER 02:09
DX: G40.909 Epilepsy, unspecified, not intractable, without status epilepticus (principal); S00.81XA Abrasion of other part of head, initial encounter; Z88.8 Allergy status to other drugs, medicaments and biological substances; Z79.899 Other long term (current) drug therapy; Z87.891 Personal history of nicotine dependence; W06.XXXA Fall from bed, initial encounter; Y92.009 Unspecified place in unspecified non-institutional (private) residence as the place of occurrence of the external cause
CPT/HCPCS: 99284; A9270

== ENCOUNTER 2022-12-15 19:04 | Emergency (ER) | payer OTHER ==
[~2022-12-15] VITALS: Ht 165.1 cm; Wt 77.1 kg
[~2022-12-15 19:04] MED LIST changes: +Acetaminophen500 MG PO; +IBUP800 PO; +ONDA4ODT MM
[2022-12-15 22:15] VITALS: BP 100/57
== END 2022-12-15 22:54 | disposition home or self-care (01) ==
LOC: ER 19:04
DX: S16.1XXA Strain of muscle, fascia and tendon at neck level, initial encounter (principal); S00.03XA Contusion of scalp, initial encounter; G47.00 Insomnia, unspecified; Z88.8 Allergy status to other drugs, medicaments and biological substances; Z87.891 Personal history of nicotine dependence; W19.XXXA Unspecified fall, initial encounter; Y92.002 Bathroom of unspecified non-institutional (private) residence as the place of occurrence of the external cause
CPT/HCPCS: 70450; 72125; 99284-25; A9270

== ENCOUNTER 2023-01-26 01:29 | Emergency (ER) | payer OTHER ==
[~2023-01-26] VITALS: Ht 149.9 cm; Wt 68.0 kg
[2023-01-26] MEDS ORDERED: LAMO100 PO ×2 (01:40→01:41)
[2023-01-26 03:00] LABS: BASOPHILS ABSOLUTE AUTO 0.03 K/mm3 (0.00-0.23); BASOPHILS PERCENT AUTO 0 % (0-2); EOSINOPHILS ABSOLUTE AUTO 0.17 K/mm3 (0.00-0.68); EOSINOPHILS PERCENT AUTO 2 % (0-6); Hematocrit 36.1 % (33.0-51.0); Hemoglobin 12.3 g/dL (11.5-16.0); IMMATURE GRAN ABSOLUTE AUTO 0.02 K/mm3 (0.00-0.10); IMMATURE GRAN PERCENT AUTO 0 % (0-1); LYMPHOCYTES ABSOLUTE AUTO 2.19 K/mm3 (0.84-5.20); LYMPHOCYTES PERCENT AUTO 28 % (21-46); MONOCYTES ABSOLUTE AUTO 0.49 K/mm3 (0.16-1.47); MONOCYTES PERCENT AUTO 6 % (4-13); Mean Corpuscular HGB 27.5 pg (26.0-34.0); Mean Corpuscular HGB Conc 34.1 g/dL (31.5-36.5); Mean Corpuscular Volume 81 fL (80-100); Mean Platelet Volume 9.9 fL (9.1-12.4); NEUTROPHILS ABSOLUTE AUTO 5.01 K/mm3 (1.96-9.15); NEUTROPHILS PERCENT AUTO 63 % (41-73); Platelet Count 238 K/mm3 (150-400); RDW Coefficient Variation 12.9 % (11.7-14.2); Red Blood Cell Count 4.48 M/mm3 (3.80-5.20); White Blood Cell Count 7.91 K/mm3 (4.00-11.30)
[2023-01-26 03:12] LABS: Source, Urine Clean Catch
[2023-01-26 03:14] LABS: Bilirubin, Urine Neg (Neg); Blood, Urine Neg (Neg); Glucose Qualitative, Urine Neg (Neg); Ketones, Urine Neg (Neg); Leukocyte Esterase, Urine Neg (Neg); Nitrite, Urine Neg (Neg); Protein, Urine Neg (Neg); Urobilinogen, Urine NORM (Normal)
[2023-01-26 03:14] LABS: Albumin, Blood 3.9 g/dL (3.4-5.0); Albumin/Globulin Ratio 1.4 (0.8-1.8); Bilirubin, Total 0.5 mg/dL (0.1-1.0); Creatinine, Blood 0.69 mg/dL (0.40-1.00); Globulin, Blood 2.8 g/dL (2.2-4.0); Potassium, Blood 3.3 mmol/L (3.5-5.5); Total Protein, Blood 6.7 g/dL (6.4-8.2)
[2023-01-26 03:19] LABS: Appearance, Urine Clear (Clear); Color, Urine Yellow (P-Yellow)
[2023-01-26 03:26] LABS: U Amphetamine Screen Not Detected; U Barbituate Screen Not Detected; U Benzodiazapine Screen Not Detected; U Buprenorphine Screen Not Detected; U Cannabinoids Screen Not Detected; U Cocaine Screen Not Detected; U Methadone Screen Not Detected; U Methamphetamine Screen Not Detected; U Opiates Screen Not Detected; U Oxycodone Screen Not Detected; U Phencyclidine Screen Not Detected; U Propoxyphene Screen Not Detected
[2023-01-26 04:30] VITALS: BP 117/78
== END 2023-01-26 04:45 | disposition home or self-care (01) ==
LOC: ER 01:29
PROVIDERS: Student in an Organized Health Care Education/Training Program
DX: F44.5 Conversion disorder with seizures or convulsions (principal); Z88.8 Allergy status to other drugs, medicaments and biological substances; Z79.899 Other long term (current) drug therapy; F43.10 Post-traumatic stress disorder, unspecified; Z87.891 Personal history of nicotine dependence; M79.81 Nontraumatic hematoma of soft tissue
CPT/HCPCS: 51701; 70450; 80053; 81003; 83605; 84146; 84703; 85025; 93005; 93010; 96374-59; 99285-25; J2405

== ENCOUNTER 2023-04-08 03:02 | Observation (INO) | payer OTHER ==
[~2023-04-08] VITALS: Ht 149.9 cm; Wt 69.8 kg
[~2023-04-08 03:02] MED LIST changes: +LAMO100 PO
[2023-04-08 04:07] LABS: Source, Urine Clean Catch
[2023-04-08 04:10] LABS: Bilirubin, Urine Neg (Neg); Blood, Urine Neg (Neg); Glucose Qualitative, Urine Neg (Neg); Ketones, Urine Neg (Neg); Leukocyte Esterase, Urine Neg (Neg); Nitrite, Urine Neg (Neg); Protein, Urine Neg (Neg); Specific Gravity, Urine 1.025 (1.003-1.022); Urobilinogen, Urine NORM (Normal)
[2023-04-08 04:11] LABS: Appearance, Urine Clear (Clear); Color, Urine Yellow (P-Yellow)
[2023-04-08 04:25] LABS: BASOPHILS ABSOLUTE AUTO 0.06 K/mm3 (0.00-0.23); BASOPHILS PERCENT AUTO 1 % (0-2); EOSINOPHILS ABSOLUTE AUTO 0.39 K/mm3 (0.00-0.68); EOSINOPHILS PERCENT AUTO 5 % (0-6); Hematocrit 38.9 % (33.0-51.0); IMMATURE GRAN ABSOLUTE AUTO 0.03 K/mm3 (0.00-0.10); IMMATURE GRAN PERCENT AUTO 0 % (0-1); LYMPHOCYTES ABSOLUTE AUTO 1.72 K/mm3 (0.84-5.20); LYMPHOCYTES PERCENT AUTO 21 % (21-46); MONOCYTES ABSOLUTE AUTO 0.62 K/mm3 (0.16-1.47); MONOCYTES PERCENT AUTO 7 % (4-13); Mean Corpuscular HGB 27.6 pg (26.0-34.0); Mean Corpuscular HGB Conc 33.4 g/dL (31.5-36.5); Mean Corpuscular Volume 83 fL (80-100); Mean Platelet Volume 10.1 fL (9.1-12.4); NEUTROPHILS ABSOLUTE AUTO 5.58 K/mm3 (1.96-9.15); NEUTROPHILS PERCENT AUTO 66 % (41-73); Platelet Count 234 K/mm3 (150-400); RDW Coefficient Variation 13.2 % (11.7-14.2); RDW Standard Deviation 40.2 fL (35.1-46.3); Red Blood Cell Count 4.71 M/mm3 (3.80-5.20)
[2023-04-08 04:27] LABS: U Amphetamine Screen Not Detected; U Barbituate Screen Not Detected; U Benzodiazapine Screen Not Detected; U Buprenorphine Screen Not Detected; U Cannabinoids Screen Not Detected; U Cocaine Screen Not Detected; U Methadone Screen Not Detected; U Methamphetamine Screen Not Detected; U Opiates Screen Not Detected; U Oxycodone Screen Not Detected; U Phencyclidine Screen Not Detected; U Propoxyphene Screen Not Detected
[2023-04-08 04:47] LABS: Ethanol (Alcohol), Blood, Med <3 mg/dL; Salicylate <1.7 mg/dL (2.8-20.0)
[2023-04-08 04:52] LABS: Alanine Aminotransfer (ALT/SGP 21 U/L (12-78); Albumin, Blood 4.1 g/dL (3.4-5.0); Albumin/Globulin Ratio 1.4 (0.8-1.8); Alk Phos 94 U/L (50-136); Anion Gap 5 mmol/L (6-16); Aspartate Aminotrans (AST/SGOT 15 U/L (12-37); Bilirubin, Total 0.3 mg/dL (0.1-1.0); Blood Urea Nitrogen 15 mg/dL (8-24); Bun/Creatinine Ratio 19.1 (12.0-20.0); CO2, Blood 26 mmol/L (21-32); Calcium, Blood 9.1 mg/dL (8.5-10.1); Chloride, Blood 111 mmol/L (98-108); Creatinine, Blood 0.79 mg/dL (0.40-1.00); Glomerular Filtration Rate 103 (60-); Glucose, Blood 91 mg/dL (70-99); Potassium, Blood 4.1 mmol/L (3.5-5.5); Sodium, Blood 142 mmol/L (136-145); Total Protein, Blood 7.1 g/dL (6.4-8.2)
[2023-04-08 04:53] LABS: Acetaminophen, Random <2.0 ug/mL (10.0-30.0)
[2023-04-08 09:44] LABS: Influenza A, PCR NEGATIVE (NEGATIVE); Influenza B, PCR NEGATIVE (NEGATIVE); Resp Syncytial Virus, PCR NEGATIVE (NEGATIVE); SARS-Cov-2 (COVID-19) PCR, MMC NEGATIVE (NEGATIVE)
[2023-04-08 21:59] VITALS: BP 105/54
== END 2023-04-09 10:00 ==
LOC: ER 03:02 → EOR 03:03
PROVIDERS: ADMIT Student in an Organized Health Care Education/Training Program
DX: F31.81 Bipolar II disorder (principal); Z20.822 Contact with and (suspected) exposure to COVID-19; Z88.8 Allergy status to other drugs, medicaments and biological substances; Z87.891 Personal history of nicotine dependence
CPT/HCPCS: 0241U; 80053; 81003; 81025; 85025; 93005; 93010; 99285-25; A9270; G0378; G0480

== ENCOUNTER 2023-04-22 13:06 | Emergency (ER) | payer OTHER ==
[~2023-04-22] VITALS: Ht 149.9 cm; Wt 70.3 kg
[2023-04-22 13:13] VITALS: BP 119/71
== END 2023-04-22 13:51 | disposition home or self-care (01) ==
LOC: ER 13:06
DX: R56.9 Unspecified convulsions (principal); F20.9 Schizophrenia, unspecified; F43.10 Post-traumatic stress disorder, unspecified; F17.290 Nicotine dependence, other tobacco product, uncomplicated; Z79.899 Other long term (current) drug therapy; Z88.8 Allergy status to other drugs, medicaments and biological substances
CPT/HCPCS: 99284

== ENCOUNTER 2023-04-27 22:36 | Emergency (ER) | payer OTHER ==
[~2023-04-27] VITALS: Ht 149.9 cm; Wt 70.3 kg
[2023-04-28 00:38] LABS: BASOPHILS ABSOLUTE AUTO 0.04 K/mm3 (0.00-0.23); BASOPHILS PERCENT AUTO 0 % (0-2); EOSINOPHILS ABSOLUTE AUTO 0.64 K/mm3 (0.00-0.68); EOSINOPHILS PERCENT AUTO 7 % (0-6); Hematocrit 41.3 % (33.0-51.0); Hemoglobin 13.7 g/dL (11.5-16.0); IMMATURE GRAN ABSOLUTE AUTO 0.06 K/mm3 (0.00-0.10); IMMATURE GRAN PERCENT AUTO 1 % (0-1); LYMPHOCYTES ABSOLUTE AUTO 1.95 K/mm3 (0.84-5.20); LYMPHOCYTES PERCENT AUTO 22 % (21-46); MONOCYTES ABSOLUTE AUTO 0.81 K/mm3 (0.16-1.47); MONOCYTES PERCENT AUTO 9 % (4-13); Mean Corpuscular HGB 27.8 pg (26.0-34.0); Mean Corpuscular HGB Conc 33.2 g/dL (31.5-36.5); Mean Corpuscular Volume 84 fL (80-100); Mean Platelet Volume 9.9 fL (9.1-12.4); NEUTROPHILS ABSOLUTE AUTO 5.49 K/mm3 (1.96-9.15); NEUTROPHILS PERCENT AUTO 61 % (41-73); Platelet Count 227 K/mm3 (150-400); RDW Coefficient Variation 13.1 % (11.7-14.2); RDW Standard Deviation 39.7 fL (35.1-46.3); Red Blood Cell Count 4.93 M/mm3 (3.80-5.20); White Blood Cell Count 8.99 K/mm3 (4.00-11.30)
[2023-04-28 00:57] LABS: Alanine Aminotransfer (ALT/SGP 20 U/L (12-78); Albumin, Blood 3.9 g/dL (3.4-5.0); Albumin/Globulin Ratio 1.3 (0.8-1.8); Alk Phos 77 U/L (50-136); Anion Gap 10 mmol/L (6-16); Aspartate Aminotrans (AST/SGOT 10 U/L (12-37); Bilirubin, Total 0.4 mg/dL (0.1-1.0); Blood Urea Nitrogen 11 mg/dL (8-24); Bun/Creatinine Ratio 16.9 (12.0-20.0); CO2, Blood 25 mmol/L (21-32); Calcium, Blood 9.1 mg/dL (8.5-10.1); Chloride, Blood 109 mmol/L (98-108); Creatinine, Blood 0.65 mg/dL (0.40-1.00); Ethanol (Alcohol), Blood, Med <3 mg/dL; Globulin, Blood 2.9 g/dL (2.2-4.0); Glomerular Filtration Rate 121 (60-); Glucose, Blood 100 mg/dL (70-99); Magnesium, Blood 2.1 mg/dL (1.6-2.4); Potassium, Blood 3.7 mmol/L (3.5-5.5); Sodium, Blood 144 mmol/L (136-145); Total Protein, Blood 6.8 g/dL (6.4-8.2)
[2023-04-28 01:00] VITALS: BP 127/86
== END 2023-04-28 01:30 | disposition home or self-care (01) ==
LOC: ER 22:36
PROVIDERS: Emergency Medicine
DX: R56.9 Unspecified convulsions (principal); F41.9 Anxiety disorder, unspecified; F31.9 Bipolar disorder, unspecified; F20.9 Schizophrenia, unspecified; Z88.8 Allergy status to other drugs, medicaments and biological substances; Z79.899 Other long term (current) drug therapy
CPT/HCPCS: 80053; 83735; 85025; 96374; 99284-25; A9270; J2060; J2405

== ENCOUNTER → 2023-05-16 | Outpatient (CLI) | payer OTHER ==
[2023-05-16 15:34] LABS: G. vaginalis (DNA Probe) Negative (NEGATIVE); T. vaginalis (DNA Probe) Negative (NEGATIVE)
[2023-05-16 15:35] LABS: Candida species (DNA Probe) Negative (NEGATIVE)
== END ==
LOC: LAB 11:03 → LAB SHORT 11:03
PROVIDERS: Nurse Practitioner Family
DX: B37.31 Acute candidiasis of vulva and vagina (principal)
CPT/HCPCS: 87086; 87480; 87510; 87660

== ENCOUNTER → 2024-01-22 | Outpatient (CLI) | payer OTHER | END | disposition home or self-care (01) | LOC: LAB SHORT 11:30 → LAB 11:30 | DX: R30.0 Dysuria (principal) | CPT/HCPCS: 87077; 87086; 87186 ==

== ENCOUNTER → 2024-02-11 | Outpatient (CLI) | payer OTHER | END | disposition home or self-care (01) | LOC: LAB SHORT 17:32 → LAB 17:32 | DX: R82.90 Unspecified abnormal findings in urine (principal) | CPT/HCPCS: 87086 ==

== ENCOUNTER 2024-04-05 18:05 | Emergency (ER) | payer OTHER ==
[~2024-04-05] VITALS: Ht 149.9 cm; Wt 72.6 kg
[2024-04-05 19:20] VITALS: BP 113/73
[2024-04-05] MEDS ORDERED: NEURONTIN300 MG PO (19:21)
[2024-04-05] MEDS ORDERED: BUTALB-ACETAMI1 EAC5 PO (19:21)
[2024-04-05] MEDS ORDERED: PROZAC40 MG PO (19:21)
[2024-04-05] MEDS ORDERED: ZOLPIDEM TARTRA10 MG PO (19:21)
[2024-04-05] MEDS ORDERED: ZIPR40 PO (19:22)
[2024-04-05] MEDS ORDERED: Phentermine HCl30 MG (19:22)
[2024-04-05] MEDS ORDERED: CLONAZEPAM1 MG PO (19:22)
[2024-04-05] MEDS ORDERED: ZOLP10 PO (19:28)
[2024-04-05] MEDS ORDERED: Prochlorperazine Edisylate 10 mg Vial IV ONE (19:55)
[2024-04-05] MEDS ORDERED: NS 1,000 ML IV SCH (19:55)
[2024-04-05] MEDS ORDERED: DiphenhydrAMINE HCl 50 MG/ML 1ML Vial IV ONE (19:55)
[2024-04-05] MEDS ORDERED: Ketorolac Tromethamine 15mg Vial IV ONE (19:55)
== END 2024-04-05 21:06 | disposition home or self-care (01) ==
LOC: ER 18:05
DX: G43.909 Migraine, unspecified, not intractable, without status migrainosus (principal); Z88.8 Allergy status to other drugs, medicaments and biological substances; Z79.899 Other long term (current) drug therapy
CPT/HCPCS: 96361; 96374; 96375; 99283-25; J0780; J1200; J1885; J7030

== ENCOUNTER 2024-07-08 22:46 | Emergency (ER) | payer OTHER ==
[~2024-07-08] VITALS: Ht 149.9 cm; Wt 71.2 kg
[~2024-07-08 22:46] MED LIST changes: +BUTALB-ACETAMI1 EAC5 PO; +CLONAZEPAM1 MG PO; +NEURONTIN300 MG PO; +PROZAC40 MG PO; +Phentermine HCl30 MG; +ZIPR40 PO; +ZOLP10 PO; +ZOLPIDEM TARTRA10 MG PO
[2024-07-08] MEDS ORDERED: Ondansetron HCl 2 MG / ML 2ML Vial IV ONE (22:55)
[2024-07-08 23:30] LABS: BASOPHILS ABSOLUTE AUTO 0.03 K/mm3 (0.00-0.23); BASOPHILS PERCENT AUTO 0 % (0-2); EOSINOPHILS ABSOLUTE AUTO 0.21 K/mm3 (0.00-0.68); EOSINOPHILS PERCENT AUTO 3 % (0-6); Hematocrit 36.8 % (33.0-51.0); Hemoglobin 12.8 g/dL (11.5-16.0); IMMATURE GRAN ABSOLUTE AUTO 0.06 K/mm3 (0.00-0.10); IMMATURE GRAN PERCENT AUTO 1 % (0-1); LYMPHOCYTES ABSOLUTE AUTO 2.23 K/mm3 (0.84-5.20); LYMPHOCYTES PERCENT AUTO 29 % (21-46); MONOCYTES ABSOLUTE AUTO 0.52 K/mm3 (0.16-1.47); MONOCYTES PERCENT AUTO 7 % (4-13); Mean Corpuscular HGB 28.6 pg (26.0-34.0); Mean Corpuscular HGB Conc 34.8 g/dL (31.5-36.5); Mean Corpuscular Volume 82 fL (80-100); Mean Platelet Volume 9.2 fL (9.1-12.4); NEUTROPHILS ABSOLUTE AUTO 4.62 K/mm3 (1.96-9.15); NEUTROPHILS PERCENT AUTO 60 % (41-73); Platelet Count 290 K/mm3 (150-400); RDW Coefficient Variation 11.9 % (11.7-14.2); Red Blood Cell Count 4.47 M/mm3 (3.80-5.20); White Blood Cell Count 7.67 K/mm3 (4.00-11.30)
[2024-07-08 23:46] LABS: Albumin, Blood 3.8 g/dL (3.4-5.0); Albumin/Globulin Ratio 1.3 (0.8-1.8); Bilirubin, Total 0.3 mg/dL (0.1-1.0); Bun/Creatinine Ratio 15.6 (12.0-20.0); Creatinine, Blood 0.58 mg/dL (0.40-1.00); Globulin, Blood 2.9 g/dL (2.2-4.0); Potassium, Blood 3.8 mmol/L (3.5-5.5); Total Protein, Blood 6.7 g/dL (6.4-8.2)
[2024-07-09] MEDS ORDERED: NS 1,000 ML IV SCH (00:40)
[2024-07-09] MEDS ORDERED: DiphenhydrAMINE HCl 50 MG/ML 1ML Vial IV ONE (00:40)
[2024-07-09] MEDS ORDERED: Ketorolac Tromethamine 30mg Vial IV ONE (00:40)
[2024-07-09] MEDS ORDERED: Dexamethasone Sod Phos 10 MG/ML 1ML VIAL IV ONE (00:40)
[2024-07-09 00:54] LABS: Source, Urine Clean Catch
[2024-07-09 01:02] LABS: Bilirubin, Urine Neg (Neg); Blood, Urine Neg (Neg); Color, Urine Yellow (P-Yellow); Glucose Qualitative, Urine Neg (Neg); Ketones, Urine Neg (Neg); Leukocyte Esterase, Urine 1+ (Neg); Nitrite, Urine Neg (Neg); Protein, Urine 1+ (Neg); Specific Gravity, Urine 1.015 (1.003-1.022); Urobilinogen, Urine 2+ (Normal)
[2024-07-09 01:15] VITALS: BP 117/78
[2024-07-09 01:15] LABS: Appearance, Urine Hazy (Clear)
[2024-07-09 01:16] LABS: Amorphous Mod (0-Heavy); Bacteria Mod /hpf; Red Blood Cells, Urine 0-2 /hpf (0-2); Squamous Epithelial Cells Few /hpf (Few); White Blood Cells, Urine 0-2 /hpf (0-5)
[2024-07-09] MEDS ORDERED: CEPH500 PO (01:24)
== END 2024-07-09 01:50 | disposition home or self-care (01) ==
LOC: ER 22:46
PROVIDERS: Emergency Medicine
DX: G43.909 Migraine, unspecified, not intractable, without status migrainosus (principal); E86.0 Dehydration; N39.0 Urinary tract infection, site not specified; F31.9 Bipolar disorder, unspecified; Z88.8 Allergy status to other drugs, medicaments and biological substances; Z79.899 Other long term (current) drug therapy; Z87.891 Personal history of nicotine dependence
CPT/HCPCS: 80053; 81001; 81025; 85025; 87086; 93005; 93010; 96374; 96375; 99284-25; J1100; J1200; J1885; J2405; J7030

== ENCOUNTER 2024-07-22 13:06 | Observation (INO) | payer OTHER ==
[~2024-07-22] VITALS: Ht 149.9 cm; Wt 72.1 kg
[~2024-07-22 13:06] MED LIST changes: +CEPH500 PO
[2024-07-22 13:47] LABS: Source, Urine Clean Catch
[2024-07-22 13:58] LABS: Appearance, Urine Hazy (Clear); Bilirubin, Urine Neg (Neg); Blood, Urine 1+ (Neg); Glucose Qualitative, Urine Neg (Neg); Ketones, Urine Neg (Neg); Leukocyte Esterase, Urine 3+ (Neg); Nitrite, Urine Neg (Neg); Protein, Urine Neg (Neg); Urobilinogen, Urine NORM (Normal)
[2024-07-22 14:24] LABS: Color, Urine Pale Yellow (P-Yellow)
[2024-07-22 14:25] LABS: BASOPHILS ABSOLUTE AUTO 0.05 K/mm3 (0.00-0.23); BASOPHILS PERCENT AUTO 1 % (0-2); EOSINOPHILS ABSOLUTE AUTO 0.17 K/mm3 (0.00-0.68); EOSINOPHILS PERCENT AUTO 3 % (0-6); Hemoglobin 14.2 g/dL (11.5-16.0); IMMATURE GRAN ABSOLUTE AUTO 0.06 K/mm3 (0.00-0.10); IMMATURE GRAN PERCENT AUTO 1 % (0-1); LYMPHOCYTES ABSOLUTE AUTO 1.96 K/mm3 (0.84-5.20); LYMPHOCYTES PERCENT AUTO 31 % (21-46); MONOCYTES ABSOLUTE AUTO 0.38 K/mm3 (0.16-1.47); MONOCYTES PERCENT AUTO 6 % (4-13); Mean Corpuscular HGB 28.8 pg (26.0-34.0); Mean Corpuscular HGB Conc 34.6 g/dL (31.5-36.5); Mean Corpuscular Volume 83 fL (80-100); Mean Platelet Volume 10.2 fL (9.1-12.4); NEUTROPHILS ABSOLUTE AUTO 3.81 K/mm3 (1.96-9.15); NEUTROPHILS PERCENT AUTO 59 % (41-73); Platelet Count 306 K/mm3 (150-400); RDW Coefficient Variation 12.5 % (11.7-14.2); RDW Standard Deviation 37.8 fL (35.1-46.3); Red Blood Cell Count 4.93 M/mm3 (3.80-5.20); Red Blood Cells, Urine 0-2 /hpf (0-2); White Blood Cell Count 6.43 K/mm3 (4.00-11.30)
[2024-07-22] MEDS ORDERED: DiphenhydrAMINE HCl 50 MG/ML 1ML Vial IM ONE (14:25)
[2024-07-22] MEDS ORDERED: Ketorolac Tromethamine 30mg Vial IM ONE (14:25)
[2024-07-22] MEDS ORDERED: Acetaminophen 500 MG Tab PO ONE (14:25)
[2024-07-22] MEDS ORDERED: Prochlorperazine Edisylate 10 mg Vial IM ONE (14:25)
[2024-07-22 14:26] LABS: Bacteria Many /hpf; Squamous Epithelial Cells Mod /hpf (Few); Transitional Epithelial Cells Rare /hpf (0-Rare)
[2024-07-22 14:27] LABS: U Amphetamine Screen Not Detected; U Barbituate Screen Not Detected; U Benzodiazapine Screen Not Detected; U Buprenorphine Screen Not Detected; U Cannabinoids Screen Not Detected; U Cocaine Screen Not Detected; U Methadone Screen Not Detected; U Methamphetamine Screen Not Detected; U Opiates Screen Not Detected; U Oxycodone Screen Not Detected; U Phencyclidine Screen Not Detected
[2024-07-22 14:28] LABS: Ethanol (Alcohol), Blood, Med <3 mg/dL; Salicylate <1.7 mg/dL (2.8-20.0)
[2024-07-22 14:41] LABS: Acetaminophen, Random <2.0 ug/mL (10.0-30.0); Alanine Aminotransfer (ALT/SGP 24 U/L (12-78); Albumin, Blood 4.2 g/dL (3.4-5.0); Albumin/Globulin Ratio 1.4 (0.8-1.8); Alk Phos 110 U/L (50-136); Anion Gap 12 mmol/L (3-11); Aspartate Aminotrans (AST/SGOT 12 U/L (12-37); Bilirubin, Total 0.9 mg/dL (0.1-1.0); Blood Urea Nitrogen 11 mg/dL (8-24); Bun/Creatinine Ratio 14.9 (12.0-20.0); CO2, Blood 24 mmol/L (21-32); Calcium, Blood 9.2 mg/dL (8.5-10.1); Chloride, Blood 115 mmol/L (98-108); Creatinine, Blood 0.74 mg/dL (0.40-1.00); Glomerular Filtration Rate 111 (60-); Glucose, Blood 131 mg/dL (70-99); Potassium, Blood 3.3 mmol/L (3.5-5.5); Sodium, Blood 148 mmol/L (136-145); Total Protein, Blood 7.2 g/dL (6.4-8.2)
[2024-07-22] MEDS ORDERED: Cephalexin Monohydrate 500 MG Cap PO ONE (15:15)
[2024-07-22] MEDS ORDERED: Potassium Chloride 20 MEQ TabCR PO ONE (15:15)
[2024-07-22] MEDS ORDERED: Potassium Chloride 10 Meq Tablet SA PO ONE (16:40)
[2024-07-22] MEDS ORDERED: Nicotine 7 MG PATCH TOP ONE (16:40)
[2024-07-22] MEDS ORDERED: ClonazePAM 1 MG Tab PO ONE (19:40)
[2024-07-22] MEDS ORDERED: FLUOXETINE HCL60 MG PO (20:02)
[2024-07-22 21:12] VITALS: BP 112/63
[2024-07-23] MEDS ORDERED: Cephalexin Monohydrate 500 MG Cap PO SCH (09:00)
== END 2024-07-22 21:19 | disposition other institution (70) ==
LOC: ER 13:06 → EOR 13:07
PROVIDERS: Physician Assistant; ADMIT Student in an Organized Health Care Education/Training Program
DX: T42.4X2A Poisoning by benzodiazepines, intentional self-harm, initial encounter (principal); R45.851 Suicidal ideations; F20.9 Schizophrenia, unspecified; F31.9 Bipolar disorder, unspecified; Z79.899 Other long term (current) drug therapy; F43.10 Post-traumatic stress disorder, unspecified; L40.9 Psoriasis, unspecified; F17.200 Nicotine dependence, unspecified, uncomplicated; G47.00 Insomnia, unspecified; N30.00 Acute cystitis without hematuria
CPT/HCPCS: 36415; 80053; 80320; 81001; 81025; 85025; 87086; 96372; 99285-25; A9270; G0378; G0480; J0780; J1200; J1885

== ENCOUNTER 2024-07-22 15:59 | Inpatient (IN) | payer OTHER ==
[~2024-07-22] VITALS: Ht 149.9 cm; Wt 73.6 kg
[~2024-07-22 15:59] MED LIST changes: -CLONAZEPAM1 MG PO
[2024-07-22] MEDS ORDERED: Aluminum Hydroxide 320MG/5ML 473 ML PO PRN (18:35)
[2024-07-22] MEDS ORDERED: Acetaminophen 325 MG TABLET PO PRN (18:35)
[2024-07-22] MEDS ORDERED: FLU VACC TS2024-25(6MOS UP)/PF 45 MCG/0.5 ML SYRINGE IM ONE (18:35)
[2024-07-22] MEDS ORDERED: Calcium Carbonate 500 MG Tab Chew PO PRN (18:35)
[2024-07-22] MEDS ORDERED: Melatonin 3 MG Tab PO PRN (18:35)
[2024-07-22] MEDS ORDERED: Ibuprofen 600 MG Tab PO PRN (18:40)
[2024-07-22] MEDS ORDERED: TraZODone HCl 50 MG Tab PO PRN (18:40)
[2024-07-22] MEDS ORDERED: HydrOXYzine Pamoate 50 MG Cap PO PRN (18:40)
[2024-07-22] MEDS ORDERED: OLANZapine ODT 10 MG Tab MM PRN (18:40)
[2024-07-22] MEDS ORDERED: Polyethylene Glycol 3350 17 gm PO PRN (18:40)
[2024-07-22] MEDS ORDERED: Ondansetron 4 MG SoluTab MM PRN (18:55)
[2024-07-22] MEDS ORDERED: FLUOXETINE HCL60 MG PO (20:02)
[2024-07-22] MEDS ORDERED: Gabapentin 100 MG Cap PO SCH (21:00)
[2024-07-22] MEDS ORDERED: ClonazePAM 1 MG Tab PO SCH (21:00)
[2024-07-22 22:26] VITALS: BP 118/86
--- NOTE | 2024-07-22 23:06 | NUR ---
ADMISSION NOTE: PATIENT ARRIVED TO THE [facility] FROM [facility] ED, ACCOMPANIED BY YUMIKO WOODWARD, AND TWO SECURITY PERSONNEL. SHE ARRIVED AT 2120. SHE WAS PLEASANT AND COOPERATIVE WITH ADMISSION PROCESS. SHE HAS A FAMILY HISTORY OF DIAGNOSED MENTAL HEALTH CONDITIONS INCLUDING GRANDMOTHER WITH MDD AND BOTH BIOLOGICAL PARENTS WITH BIPOLAR DISORDER. SHE WAS TO START COUNSELING AT [facility] TOMORROW, 07/23/24. HER PCP IS KIERSTEN CARREON. PATIENT IS ENGAGED TO BE AND IS IN FACT ACTIVELY PLANNING HER [place]. SHE STATES THAT IT IS STRESSFUL THAT THE FAMILY IS GIVING "TOO MUCH INPUT" AND "TRYING TO RUN IT". MEANWHILE, SHE FOUND OUT THAT HER FIANCE, WHOM SHE LOVES AND WANTS TO STAY WITH, TOOK COMPROMISING PHOTOS OF HIMSELF AND ANOTHER FEMALE, WITHOUT CLOTHING, WHILE PATIENT WAS EXPECTING THEIR CHILD. WHILE IT HAPPENED SOME TIME AGO, SHE JUST FOUND OUT ABOUT IT. THIS EVENT, AND THE STRESS HER FAMILY IS PLACING UPON HER, PRECIPITATED THE ATTEMPT TO END HER LIFE. SHE TOOK THREE OF HER KLONOPIN AND PLANNED TO "DRINK A LOT OF ALCOHOL", BUT DID CALL FOR HELP AND WENT TO THE EMERGENCY DEPARTMENT AT [facility]. SHE STATES THAT HER EMOTIONAL WELL BEING IS IMPORTANT TO HER AND HER FAMILY. SHE IS ACTIVELY INTERESTED IN PARTICIPATING IN WELLNESS CARE. SHE WOULD LIKE TO LEARN COPING SKILLS AND TO HAVE HER MEDICATIONS REGULATED IN A WAY THAT SHE CAN "GO BACK TO LIVING MY LIFE". PATIENT HAD THREE PRIOR SUICIDE ATTEMPTS, BY CUTTING SELF. ONE OF THE SCARS, ON HER RIGHT WRIST, IS OLDER BUT SHOWS A DEEP CUT. SHE STATES "I WAS SERIOUS". SHE WOULD LIKE TO HAVE COPING SKILLS AND RESOURCES SO THAT SHE DOES NOT FEEL HELPLESS AND GET INTO THAT SITUATION AGAIN, IDEALLY. SHE STATES HER STRENGTHS ARE A "BIG, LOVING FAMILY, MY CHILDREN AND MY GRANDMOTHER. SHE LIVES IN [place], BUT WE FACETIME EVERY DAY AND ARE VERY CLOSE". 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 SHE CURRENTLY TAKES AMBIEN, AND FINDS THAT IT IS HELPFUL, BUT THAT SHE STILL HAS ISSUES FALLING ASLEEP AND STAYING ASLEEP. SHE ALSO STATES THAT SHE DOES NOT FEEL RESTED IN THE MORNING. SHE ADMITS TO DIAGNOSES OF BIPOLAR (UNSURE WHAT TYPE) AND PTSD. SHE STATES THAT THE PTSD "GIVES ME FLASHBACKS, ESPECIALLY WHEN I AM ASLEEP" AND SHE IS INTERESTED IN COPING SKILLS FOR THAT ISSUE. SHE STATES THAT SHE HAS A DIAGNOSIS OF NONEPILEPTIC PSYCHOGENIC SEIZURE DISORDER, FOR WHICH SHE TAKES GABAPENTIN. SHE STATES THAT SHE DOES NOT HAVE A WARNING FOR THESE, AND HAS FALLEN AT TIMES DUE TO THEM. HER PURPOSE FOR BEING HERE IS "I AM ANXIOUS AND WANT THE THOUGHTS TO GO AWAY", THE THOUGHTS BEING SUICIDAL IDEATION. SHE COMPLETED ADMISSION ASSESSMENT, TOOK HER NIGHTTIME MEDICATIONS AND WENT TO BED WITHOUT ANY ISSUES OR CONCERNS.
--- NOTE | 2024-07-23 04:23 | NUR ---
SHIFT SUMMARY: PATIENT WAS ADMITTED AT 0, SEE ADMISSION NOTE. AFTER GOING TO ROOM, PATIENT USED BATHROOM AND THEN WENT TO BED, WHERE SHE WAS NOTED TO BE RESTING QUIETLY WITH EYES CLOSED AND RESPIRATIONS CONFIRMED. SHE HAD NO NEEDS OR CONCERNS DURING THE NIGHT. CONTINUING WITH Q15 MINUTE CHECKS FOR SAFETY.
[2024-07-23 08:14] VITALS: BP 113/77
[2024-07-23] MEDS ORDERED: Multivitamins 1 Tab PO SCH (09:00)
[2024-07-23] MEDS ORDERED: Nicotine 21 MG PATCH TOP ONE (10:25)
--- NOTE | 2024-07-23 15:16 | NUR ---
SHIFT ASSESSMENT: PT WAS RESTING IN BED BEFORE THE ASSESSMENT, SHE DENIED SI, HI AND AVH. SHE REPORTED ANXIEY OF 8/10w, SHE ALSO REPORTED HAVING A MIGRAINE AND WAS GIVEN TYLENOL 650MG AT 10:15 WHICH SHE SAID WAS EFFECTIVE. PT HAS ATTENDED SOME GROUPS AND IS PRESENTLY WATCHING A MOVIE WITH PEERS. HER AFFECT IS EUTHYMIC.
[2024-07-23] MEDS ORDERED: LamoTRIgine 25 MG Tab PO SCH (16:00)
--- NOTE | 2024-07-23 19:22 | NUR ---
PT COMPLAINED OF CONSTIPATION X 1 WEEK, MIRALAX 17GM GIVEN. PT IN GOOD HUMOR THIS EVENTING AND VISITING WITH A PEER.
[2024-07-23 20:06] LABS: Source, Urine Clean Catch
[2024-07-23 20:15] LABS: Appearance, Urine Clear (Clear); Bilirubin, Urine Neg (Neg); Blood, Urine 4+ (Neg); Color, Urine Yellow (P-Yellow); Glucose Qualitative, Urine Neg (Neg); Ketones, Urine Neg (Neg); Leukocyte Esterase, Urine Neg (Neg); Nitrite, Urine Neg (Neg); Protein, Urine Neg (Neg); Specific Gravity, Urine 1.015 (1.003-1.022); Urobilinogen, Urine 1+ (Normal)
[2024-07-23 20:33] LABS: Bacteria Few /hpf; Squamous Epithelial Cells Few /hpf (Few)
--- NOTE | 2024-07-23 20:57 | NUR ---
MEDICAL ISSUE: PATIENT HAD A SEIZURE THAT PRESENTED LIKE A NON-EPILEPTIC PSYCHOGENIC SEIZURE EVIDENCED BY GRABBING RAIL, LOWERING SELF TO GROUND, THEN BEGINNING SEIZURE-LIKE ACTIVITY. THERE WERE NO JERKY TYPE MOVEMENTS, BUT ALL FOUR LIMBS WERE MOVING CONTINUOUSLY FOR APPROXIMATELY A MINUTE, THEN SLOWED TO A STOP. PATIENT HAD A SLIGHT AMOUNT OF FOAMING TO MOUTH. STAFF MADE CERTAIN SHE WAS ON HER SIDE. STAFF ATTEMPTED AT THAT TIME TO TAKE VITAL SIGNS, BUT PATIENT BEGAN MOVING LIMBS AROUND AGAIN. THERE WAS NO VOCALIZATION AND EYES WERE CLOSED. SHE DID SLOW DOWN AGAIN AND DID NOT HAVE ANOTHER EPISODE WHILE ON THE UNIT. HER VITAL SIGNS WERE SUCCESSFULLY TAKEN FOLLOWS: T-98.3F, R-16, [id number]-89%, P-70 BPM AND BP 102/64. EMS WAS CALLED AND THEY ARRIVED AT ABOUT 2044. THEY PLACED PATIENT ON THE GURNEY AND TRANSPORTED HER BY AMBULANCE TO THE [facility]. NURSING HOME AIDE WAS INFORMED AND STATED THAT THE PROPER PROTOCOL WAS FOLLOWED.
[2024-07-23] MEDS ORDERED: Lithium Carbonate 300 MG TabCR PO SCH (21:00)
[2024-07-23 21:04] VITALS: BP 124/84
[2024-07-24] MEDS ORDERED: Nicotine 21 MG PATCH TOP SCH (09:00)
== END 2024-07-23 21:00 | disposition short-term general hospital (02) | DRG 885 ==
LOC: BHU 15:59
PROVIDERS: ADMIT Student in an Organized Health Care Education/Training Program
DX: F31.4 Bipolar disorder, current episode depressed, severe, without psychotic features (principal); R45.851 Suicidal ideations; Z88.8 Allergy status to other drugs, medicaments and biological substances; Z79.899 Other long term (current) drug therapy
CPT/HCPCS: 81001; A9270

== ENCOUNTER 2024-07-23 21:10 | Emergency (ER) | payer OTHER ==
[~2024-07-23] VITALS: Ht 165.1 cm; Wt 68.0 kg
[~2024-07-23 21:10] MED LIST changes: +FLUOXETINE HCL60 MG PO
[2024-07-23 21:31] VITALS: BP 124/84
[2024-07-23] MEDS ORDERED: NS 1,000 ML IV SCH (21:35)
[2024-07-23] MEDS ORDERED: Acetaminophen 500 MG Tab PO ONE (21:35)
[2024-07-23] MEDS ORDERED: Prochlorperazine Edisylate 10 mg Vial IV ONE (21:35)
[2024-07-23] MEDS ORDERED: DiphenhydrAMINE HCl 50 MG/ML 1ML Vial IV ONE (21:35)
[2024-07-23 21:40] LABS: BASOPHILS ABSOLUTE AUTO 0.05 K/mm3 (0.00-0.23); BASOPHILS PERCENT AUTO 1 % (0-2); EOSINOPHILS ABSOLUTE AUTO 0.15 K/mm3 (0.00-0.68); EOSINOPHILS PERCENT AUTO 2 % (0-6); Hematocrit 37.5 % (33.0-51.0); Hemoglobin 12.8 g/dL (11.5-16.0); IMMATURE GRAN ABSOLUTE AUTO 0.03 K/mm3 (0.00-0.10); IMMATURE GRAN PERCENT AUTO 1 % (0-1); LYMPHOCYTES ABSOLUTE AUTO 1.84 K/mm3 (0.84-5.20); LYMPHOCYTES PERCENT AUTO 30 % (21-46); MONOCYTES ABSOLUTE AUTO 0.35 K/mm3 (0.16-1.47); MONOCYTES PERCENT AUTO 6 % (4-13); Mean Corpuscular HGB 28.8 pg (26.0-34.0); Mean Corpuscular HGB Conc 34.1 g/dL (31.5-36.5); Mean Corpuscular Volume 85 fL (80-100); Mean Platelet Volume 9.7 fL (9.1-12.4); NEUTROPHILS ABSOLUTE AUTO 3.73 K/mm3 (1.96-9.15); NEUTROPHILS PERCENT AUTO 61 % (41-73); Platelet Count 256 K/mm3 (150-400); RDW Coefficient Variation 12.6 % (11.7-14.2); RDW Standard Deviation 38.5 fL (35.1-46.3); Red Blood Cell Count 4.44 M/mm3 (3.80-5.20); White Blood Cell Count 6.15 K/mm3 (4.00-11.30)
[2024-07-23 22:05] LABS: Bun/Creatinine Ratio 19.1 (12.0-20.0); Creatinine, Blood 0.73 mg/dL (0.40-1.00); Potassium, Blood 4.2 mmol/L (3.5-5.5)
[2024-07-23] MEDS ORDERED: Ketorolac Tromethamine 15mg Vial IV ONE (22:40)
== END 2024-07-24 00:30 | disposition home or self-care (01) ==
LOC: ER 21:10
PROVIDERS: Emergency Medicine
DX: R56.9 Unspecified convulsions (principal); G43.909 Migraine, unspecified, not intractable, without status migrainosus; F43.10 Post-traumatic stress disorder, unspecified; G47.00 Insomnia, unspecified; Z87.891 Personal history of nicotine dependence; Z79.899 Other long term (current) drug therapy; Z88.8 Allergy status to other drugs, medicaments and biological substances
CPT/HCPCS: 80048; 85025; 96374; 96375; 99284-25; A9270; J0780; J1200; J1885; J7030

== ENCOUNTER 2024-07-24 | Inpatient (IN) | payer OTHER ==
[~2024-07-24] VITALS: Ht 149.9 cm; Wt 73.6 kg
[2024-07-24] MEDS ORDERED: Ibuprofen 600 MG Tab PO PRN (01:10)
[2024-07-24] MEDS ORDERED: Aluminum Hydroxide 320MG/5ML 473 ML PO PRN (01:10)
[2024-07-24] MEDS ORDERED: Polyethylene Glycol 3350 17 gm PO PRN (01:20)
[2024-07-24] MEDS ORDERED: Ondansetron 4 MG SoluTab SL PRN (01:25)
[2024-07-24] MEDS ORDERED: Acetaminophen 325 MG TABLET PO PRN (01:25)
[2024-07-24] MEDS ORDERED: Multivitamins 1 Tab PO ONE (01:25)
[2024-07-24] MEDS ORDERED: HydrOXYzine Pamoate 50 MG Cap PO PRN (01:25)
[2024-07-24 01:56] VITALS: BP 102/64
--- NOTE | 2024-07-24 02:27 | NUR ---
PATIENT MEDICAL EVENT: PATIENT WAS WALKING DOWN THE HALLWAY WHEN SHE GRABBED THE HANDRAIL WITH BOTH HANDS AND SLOWLY AND SOFTLY WENT TO THE GROUND. SHE THEN BEGAN FLAILING ALL FOUR OF HER LIMBS IN A NON-CLONIC/TONIC MANNER. SHE DID NOT MAKE ANY VERBALIZATION. HER EYES WERE TIGHTLY CLOSED. YUMIKO DAMIAN AND TERE ROSARIO WERE NEARBY IN THE [place] AND ATTENDED TO HER. SHE HELPED TURN TO HER SIDE, SHE WAS SLIGHTLY FOAMING/SPITTLE FROM MOUTH, SMALL AMOUNT. THIS CONTINUED FOR ABOUT 30-60 SECONDS, THEN SLOWED TO A STOP. PILLOW WAS OBTAINED FOR PATIENT HEAD AND VITALS MACHINE BROUGHT TO HER. YUMIKO SCOTT ATTEMPTED TO GET VITAL SIGNS, THE FLAILING BEGAN AGAIN AND LASTED ABOUT 60 SECONDS. ONCE PATIENT WAS STILL, AND VITALS TAKEN, RESPIRATIONS CONFIRMED, PATIENT ABLE TO ANSWER QUESTIONS APPROPRIATELY, YUMIKO WENT TO THE NURSING STATION TO CALL 911. EMS CAME WITHIN A FEW MINUTES. THEY HELPED PATIENT PUT HERSELF ON THE STRETCHER, AND TOOK HER TO THE [facility] EMERGENCY DEPARTMENT. PATIENT WAS THEN DISCHARGED FROM THE [facility] TEMPORARILY, SO THAT SHE COULD BE ADMITTED TO THE ED. THE FIRST SEIZURE LIKE ACTIVITY OCCURRED ABOUT 2114, AND PATIENT LEFT THE UNIT BEFORE 2150 PM. ED CALLED SHORTLY BEFORE MIDNIGHT TO STATE THAT THEY HAD "DISCHARGED" THE PATIENT AND "WE ARE SENDING HER HOME. WE CALLED HER A CAB AND SHE'S SITTING IN THE LOBBY". RN REITERATED THAT PATIENT WAS TO COME BACK TO [facility]. RN CALLED DR TEJADA, WHO CALLED THE ED DOCTOR FOR A DOC TO DOC. RN GOT RN TO RN REPORT FROM ED. NEW F NUMBER WAS OBTAINED FOR PATIENT AND SHE WAS READMITTED. PER MUSEUM HOST/HOSTESS ORDERS, VOLUNTARY ADMISSION AND GENERAL CONSENT FORMS WERE SIGNED. PATIENT WAS ASSESSED FOR SI AND RISK ASSESSMENTS. PATIENT STATED, "I'M TIRED AND JUST WANT TO GO TO SLEEP." SHE HAD BEEN GIVEN HER NIGHTTIME MEDICATIONS BEFORE THE INCIDENT. SHE WENT TO HER ROOM, ESCORTED HANDS OFF BY RN, AND WAS NOTED TO BE RESTING QUIETLY IN BED WITH EYES CLOSED AND RESPIRATIONS CONFIRMED. MEDICATION RECONCILIATION DONE AND NEW CHART COMPLETED, SAVE FOR THE REST OF THE CONSENT FORMS, TO BE UPDATED IN THE MORNING, PER MUSEUM HOST/HOSTESS AND PATIENT REQUEST.
--- NOTE | 2024-07-24 04:57 | NUR ---
SHIFT SUMMARY: PLEASE SEE PRIOR NOTES FOR THIS SHIFT. ONCE PATIENT WAS IN ROOM, SHE WENT TO BED AND WAS NOTED TO BE RESTING QUIETLY WITH EYES CLOSED AND RESPIRATIONS CONFIRMED FOR THE REMAINDER OF THE SHIFT. SHE DENIED ANY THOUGHTS OF SELF HARMING OR SUICIDAL IDEATION AT THIS TIME. CONTINUING TO MONITOR FOR SAFETY WITH Q15 MINUTE CHECKS.
[2024-07-24 08:11] VITALS: BP 120/78
[2024-07-24] MEDS ORDERED: Nicotine 21 MG PATCH TOP SCH (09:00)
[2024-07-24] MEDS ORDERED: LamoTRIgine 25 MG Tab PO SCH (09:00)
[2024-07-24] MEDS ORDERED: Multivitamins 1 Tab PO SCH (09:00)
[2024-07-24] MEDS ORDERED: Gabapentin 100 MG Cap PO SCH (09:00)
[2024-07-24] MEDS ORDERED: Calcium Carbonate 500 MG Tab Chew PO SCH (09:00)
[2024-07-24] MEDS ORDERED: FLU VACC TS2024-25(6MOS UP)/PF 45 MCG/0.5 ML SYRINGE IM SCH (10:15)
[2024-07-24] MEDS ORDERED: ClonazePAM 1 MG Tab PO ONE (14:20)
--- NOTE | 2024-07-24 16:22 | NUR ---
SHIFT SUMMARY: PT ALERT, ORIENTED AND COOPERATIVE WITH CARE. COMPLIANT WITH MEDICATIONS. PT ENGAGED IN GROUPS AND WAS ACTIVE IN UNIT [place]. PT CAME TO THE NURSES STATION THIS AFTERNOON C/O PANIC ATTACK AND REQUESTING SOMETHING TO HELP HER. PT WENT INTO THE SENSORY ROOM AND TALKED WITH TERE FLORES. PROVIDED WITH VISTARIL PER EMAR. PT CALMED AFTER A ABOUT 15 MINUTES. TALKING AND LAUGHING WITH TERE FLORES.
[2024-07-24 20:42] VITALS: BP 121/84
[2024-07-24] MEDS ORDERED: Melatonin 3 MG Tab PO SCH (21:00)
[2024-07-24] MEDS ORDERED: TraZODone HCl 50 MG Tab PO SCH (21:00)
[2024-07-24] MEDS ORDERED: Lithium Carbonate 300 MG TabCR PO SCH ×2 (21:00)
[2024-07-24] MEDS ORDERED: ClonazePAM 1 MG Tab PO SCH ×2 (21:00)
--- NOTE | 2024-07-25 05:11 | NUR ---
SHIFT SUMMARY PATIENT UP AMBULATING IN [place] VISITING WITH STAFF AND PEERS. VERBALIZED NEEDING TO HAVE A BM, WITH LAST BM 1 WEEK AGO. MIRALAX GIVEN ON DAY SHIFT, ENCOURAGED TO DRINK WATER, WALK, ADD BUTTER TO HER COFFEE IN THE MORNING IF NO RESULTS DURING THE NIGHT. PATIENT ALSO STARTED MENSTRUATION TONIGHT. PATIENT VERBALIZED FEELING ANXIOUS DENIES SI, BUT SHE WILL PICK AT WOUNDS ON HER RIGHT FA, SO THERE ARE BAND-AIDS IN PLACE WHICH HELP HER RESIST PICKING AT THE SCAB. FAITH SI, HI, AVH. COOPERATIVE WITH MEDICATIONS. SLEEPING OFF AND ON T/O NIGHT. CONTINUE TO MONITOR Q15MIN
[2024-07-25 08:02] LABS: CHOL/HDL RATIO 5.5; Cholesterol 203 mg/dL (50-200); HDL Cholesterol 37 mg/dL (>39); LDL/HDL RATIO 2.7; Low Density Lipoprotein Chol 99 mg/dL (0-110); Triglycerides 333 mg/dL (30-140); Very Low Density Lipoprot Chol 66 mg/dL (6-28)
[2024-07-25 08:13] VITALS: BP 110/67
[2024-07-25] MEDS ORDERED: ClonazePAM 1 MG Tab PO SCH (09:00)
--- NOTE | 2024-07-25 16:48 | NUR ---
SHIFT SUMMARY: PT ALERT, ORIENTED AND COOPERATIVE WITH CARE. COMPLIANT WITH MEDICATIONS. STATED THAT SHE DIDN'T SLEEP WELL LAST NIGHT AND C/O CONSTIPATION. PT MEDICATED WITH MIRALAX PER EMAR. LATER REPORTED THAT SHE HAS HAD A BM TODAY. PT HAD A VISIT WITH HER S/O THAT APPEARED TO GO WELL.
[2024-07-25 19:46] VITALS: BP 114/73
--- NOTE | 2024-07-26 04:15 | NUR ---
SHIFT SUMMARY: PATIENT WAS IN THE [place] AT THE BEGINNING OF THE SHIFT. SHE APPROACHED RN TO STATE THAT SHE HAD A GOOD DAY. SHE WAS CONCERNED FOR ROOMMATE AND WAS REASSURED. SHE PARTICIPATED IN SNACK AND FOLLOW UP GROUP. SHE WAS PLEASANT AND COOPERATIVE WITH CARES. SHE WAS COMPLIANT WITH EVENING MEDICATIONS. SHE DENIED SYMPTOMS OF SI OR SELF HARM AT THIS TIME. SHE AGREED TO COME AND FIND A STAFF MEMBER SHOULD THAT CHANGE. SHE WENT TO BED SHORTLY AFTER SNACK TIME AND WAS NOTED TO BE RESTING QUIETLY WITH EYES CLOSED AND RESPIRATIONS CONFIRMED. CONTINUING TO MONITOR FOR SAFETY WITH Q15 MINUTE CHECKS.
[2024-07-26 07:58] VITALS: BP 108/66
--- NOTE | 2024-07-26 15:40 | NUR ---
PT MEDICATED FOR C/O HEADCHE WITH IBUPROFEN PER EMAR. UPON REASSESSMENT PT DID NOT HAVE RELIEF. MEDICATED WITH TYLENOL PER EMAR.
--- NOTE | 2024-07-26 17:35 | NUR ---
SHIFT SUMMARY: PT ALERT, ORIENTED AND COOPERATIVE WITH CARE. DENIES SI, HI AND AVH. STATES THAT SHE SLEPT OK LAST NIGHT. HAS BEEN COMPLIANT WITH MEDICATIONS. MEDICATED IN THE AFTERNOON FOR C/O HEADACHE PER EMAR. PT TALKATIVE WITH STAFF AND PEERS. ENGAGED IN UNIT [place]IEU.
[2024-07-26 20:28] VITALS: BP 94/81
[2024-07-26] MEDS ORDERED: Lithium Carbonate 450 MG TabCR PO SCH (21:00)
--- NOTE | 2024-07-27 04:19 | NUR ---
SHIFT SUMMARY: PATIENT WAS IN HER ROOM AT THE BEGINNING OF THE SHIFT, STATING THAT SHE HAD A HEADACHE. SHE HAD TAKEN IBUPROFEN AND APAP FOR IT, AND DID COME OUT AT 1999 FOR SNACK AND FOLLOW UP GROUP. SHE PARTICIPATED IN THE GROUP, AND WAS PLEASANT AND COOPERATIVE WITH CARES. SHE WENT BACK TO HER ROOM AFTER SNACK TIME. SHE WAS COMPLIANT WITH MEDICATIONS. SHE STATED THAT SHE WAS FEELING "SAD" TODAY AND "I DON'T KNOW WHY". SHE THOUGHT "MAYBE I AM MISSING MY CHILDREN". SHE WAS COMPLIANT WITH EVENING MEDICATIONS. SHE DENIED THOUGHTS OF SI/HI OR SELF HARM. SHE SPENT THE REST OF THE SHIFT RESTING QUIETLY IN BED WITH EYES CLOSED AND RESPIRATIONS CONFIRMED. CONTINUING TO MONITOR FOR SAFETY WITH Q15 MINUTE CHECKS.
[2024-07-27 08:19] VITALS: BP 118/81
[2024-07-27 12:40] LABS: Albumin, Blood 3.6 g/dL (3.4-5.0); Albumin/Globulin Ratio 1.3 (0.8-1.8); Bilirubin, Total 0.5 mg/dL (0.1-1.0); Bun/Creatinine Ratio 20.7 (12.0-20.0); Calcium, Blood 8.8 mg/dL (8.5-10.1); Creatinine, Blood 0.63 mg/dL (0.40-1.00); Globulin, Blood 2.8 g/dL (2.2-4.0); Potassium, Blood 4.1 mmol/L (3.5-5.5); Total Protein, Blood 6.4 g/dL (6.4-8.2)
--- NOTE | 2024-07-27 12:46 | NUR ---
POST-HOSPITAL FOLLOW-UP APPOINTMENT Patient is scheduled to meet with BOLA Dallas on 08/14/2024 at 1615 for post-hospital follow-up appointment at [facility] // [address], [place] [address] // [phone] OSBALDO entered information into patient's discharge packet
--- NOTE | 2024-07-27 13:58 | NUR ---
HOSPITAL DISCHARGE APPOINTMENT INFORMATION Patient is scheduled with Dewayne CROCKER on 08/04/24 at 0900 at [facility] on [address], [place] [address] // [phone] Please send hospital discharge information ahead of patient's appointment SW entered appointment information in patient's discharge packet
--- NOTE | 2024-07-27 16:43 | NUR ---
SHIFT SUMMARY PT HAS BEEN UP IN THE [place] ALL SHIFT, ACTIVLY PARTICIPATING IN MEALS, SNACKS AND GROUPS. SHE IS VERY UPBEAT TODAY, SHE WILL DC HOME TOMORROW WHICH IS HER SON'S 3RD BIRTHDAY. SHE HAS DENIED SI/HI/AVH, CONTINUES TO BE MONITORED Q15 MIN TO ENSURE PT SAFETY
[2024-07-27 21:35] VITALS: BP 123/78
--- NOTE | 2024-07-28 04:22 | NUR ---
SHIFT SUMMARY PT IN BED, AWAKE, LISTENING TO MUSIC AT START OF SHIFT. PT IS PLEASANT AND COOPERATIVE, COMPLIANT WITH MEDICATIONS. SHE DENIES ANY SI, HI, THOUGHTS OF SELF HARM OR HALLUCINATIONS. SHE STATED SHE IS LOOKING FORWARD TO GOING HOME. PT HAD EVENING SNACK AND WENT BACK TO BED. HAS APPEARED TO SLEEP WELL THROUGHOUT THE NIGHT, WITH RESPIRATIONS CONFIRMED. Q15 MINUTE CHECKS TO CONTINUE PER SAFETY AND UNIT PROTOCOL.
[2024-07-28 08:15] VITALS: BP 118/80
[2024-07-28] MEDS ORDERED: LAMO25 PO (09:24)
[2024-07-28] MEDS ORDERED: LITHIUM CARBON PO (09:26)
[2024-07-28] MEDS ORDERED: CLONAZEPAM1 MG PO (11:12)
--- NOTE | 2024-07-28 11:21 | NUR ---
DISCHARGE NOTE PT AxOx4. PLEASANT AND COOPERATIVE WITH CARE. PT IS DISCHARGING HOME TODAY WITH HER SPOUSE. PT HAS BEEN FOLLOWING [place] PLAN INCLUDING TAKING MEDICATIONS PRESCRIBED, PARTICIPATING IN [place] THERAPY GROUPS AND MINGLING APPROPRIATELY WITH STAFF/PEERS. PT DENIES SI/HI AND AVTH THIS MORNING AND REPORTED A "GOOD" MOOD, STATING SHE IS LOOKING FORWARD TO GOING HOME AND SEEING HER FAMILY. PT'S DC INSTRUCTIONS WERE DISCUSSED INCLUDING DC MED LIST, FOLLOW UP APPT INFO AND DIAGNOSES SPECIFIC PATIENT EDUCATION. PT VERBALIZES UNDERSTANDING. BELONGINGS RETURNED AND PT WAS SAFELY ESCORTED OUT WITH MHA TO HER RIDE.
== END 2024-07-28 11:16 | disposition home or self-care (01) | DRG 885 ==
LOC: BHU
PROVIDERS: ADMIT Student in an Organized Health Care Education/Training Program
DX: F31.9 Bipolar disorder, unspecified (principal); G43.909 Migraine, unspecified, not intractable, without status migrainosus; F44.5 Conversion disorder with seizures or convulsions; F43.10 Post-traumatic stress disorder, unspecified; F43.25 Adjustment disorder with mixed disturbance of emotions and conduct; Z88.8 Allergy status to other drugs, medicaments and biological substances; Z79.899 Other long term (current) drug therapy; Z79.891 Long term (current) use of opiate analgesic; Z79.2 Long term (current) use of antibiotics; Z79.1 Long term (current) use of non-steroidal anti-inflammatories (NSAID); Z90.49 Acquired absence of other specified parts of digestive tract; Z87.891 Personal history of nicotine dependence
CPT/HCPCS: 36415; 80053; 80061; 80178; 83036; A9270

== ENCOUNTER 2024-09-03 22:28 | Emergency (ER) | payer OTHER ==
[~2024-09-03] VITALS: Ht 149.9 cm; Wt 66.2 kg
[~2024-09-03 22:28] MED LIST changes: +CLONAZEPAM1 MG PO; +LAMO25 PO; +LITHIUM CARBON PO
[2024-09-03 23:31] LABS: BASOPHILS ABSOLUTE AUTO 0.03 K/mm3 (0.00-0.23); BASOPHILS PERCENT AUTO 0 % (0-2); EOSINOPHILS ABSOLUTE AUTO 0.14 K/mm3 (0.00-0.68); EOSINOPHILS PERCENT AUTO 2 % (0-6); Hematocrit 40.8 % (33.0-51.0); Hemoglobin 13.9 g/dL (11.5-16.0); IMMATURE GRAN ABSOLUTE AUTO 0.02 K/mm3 (0.00-0.10); IMMATURE GRAN PERCENT AUTO 0 % (0-1); LYMPHOCYTES ABSOLUTE AUTO 2.34 K/mm3 (0.84-5.20); LYMPHOCYTES PERCENT AUTO 33 % (21-46); MONOCYTES ABSOLUTE AUTO 0.51 K/mm3 (0.16-1.47); MONOCYTES PERCENT AUTO 7 % (4-13); Mean Corpuscular HGB 28.3 pg (26.0-34.0); Mean Corpuscular HGB Conc 34.1 g/dL (31.5-36.5); Mean Corpuscular Volume 83 fL (80-100); Mean Platelet Volume 9.5 fL (9.1-12.4); NEUTROPHILS ABSOLUTE AUTO 3.99 K/mm3 (1.96-9.15); NEUTROPHILS PERCENT AUTO 57 % (41-73); Platelet Count 273 K/mm3 (150-400); RDW Coefficient Variation 12.3 % (11.7-14.2); RDW Standard Deviation 37.2 fL (35.1-46.3); Red Blood Cell Count 4.92 M/mm3 (3.80-5.20); White Blood Cell Count 7.03 K/mm3 (4.00-11.30)
[2024-09-03 23:53] LABS: Alanine Aminotransfer (ALT/SGP 36 U/L (12-78); Albumin, Blood 4.6 g/dL (3.4-5.0); Albumin/Globulin Ratio 1.8 (0.8-1.8); Alk Phos 83 U/L (50-136); Anion Gap 9 mmol/L (3-11); Aspartate Aminotrans (AST/SGOT 18 U/L (12-37); Beta HCG, Quantitative, Serum <1 mIU/mL (0-3); Bilirubin, Total 1.3 mg/dL (0.1-1.0); Blood Urea Nitrogen 8 mg/dL (8-24); Bun/Creatinine Ratio 9.5 (12.0-20.0); CO2, Blood 26 mmol/L (21-32); Calcium, Blood 9.4 mg/dL (8.5-10.1); Chloride, Blood 106 mmol/L (98-108); Creatinine, Blood 0.85 mg/dL (0.40-1.00); Globulin, Blood 2.5 g/dL (2.2-4.0); Glomerular Filtration Rate 94 (60-); Glucose, Blood 95 mg/dL (70-99); Potassium, Blood 3.5 mmol/L (3.5-5.5); Sodium, Blood 137 mmol/L (136-145); Total Protein, Blood 7.1 g/dL (6.4-8.2)
[2024-09-04] MEDS ORDERED: Ondansetron HCl 2 MG / ML 2ML Vial IV ONE (00:20)
[2024-09-04] MEDS ORDERED: NS 1,000 ML IV SCH (00:20)
[2024-09-04] MEDS ORDERED: FentaNYL Citrate 50 MCG/ML 2 ML Injection IV PRN (00:45)
[2024-09-04] MEDS ORDERED: Metoclopramide HCl 5MG / ML 2ML Vial IV ONE (01:50)
[2024-09-04] MEDS ORDERED: Prochlorperazine Edisylate 10 mg Vial IV ONE (03:00)
[2024-09-04] MEDS ORDERED: DiphenhydrAMINE HCl 50 MG/ML 1ML Vial IV ONE (03:00)
[2024-09-04] MEDS ORDERED: ONDA4ODT MM (03:52)
[2024-09-04] MEDS ORDERED: PROM12.5S PR (03:52)
[2024-09-04 04:00] VITALS: BP 98/69
== END 2024-09-04 04:02 | disposition home or self-care (01) ==
LOC: ER 22:28
PROVIDERS: Student in an Organized Health Care Education/Training Program
DX: R10.13 Epigastric pain (principal); K92.0 Hematemesis; Z87.891 Personal history of nicotine dependence; Z88.8 Allergy status to other drugs, medicaments and biological substances; Z88.4 Allergy status to anesthetic agent; Z79.899 Other long term (current) drug therapy; Z79.1 Long term (current) use of non-steroidal anti-inflammatories (NSAID); Z79.51 Long term (current) use of inhaled steroids
CPT/HCPCS: 74177; 80053; 83690; 84702; 85025; 93005; 93010; 96374-59; 96375; 96376; 99284-25; J0780; J1200; J2405; J2765; J3010; J7030; Q9967

== ENCOUNTER 2024-09-05 19:05 | Emergency (ER) | payer OTHER ==
[~2024-09-05] VITALS: Ht 149.9 cm; Wt 69.8 kg
[~2024-09-05 19:05] MED LIST changes: +PROM12.5S PR
[2024-09-05 20:01] LABS: BASOPHILS ABSOLUTE AUTO 0.03 K/mm3 (0.00-0.23); BASOPHILS PERCENT AUTO 1 % (0-2); EOSINOPHILS PERCENT AUTO 2 % (0-6); Hematocrit 40.6 % (33.0-51.0); Hemoglobin 13.5 g/dL (11.5-16.0); IMMATURE GRAN ABSOLUTE AUTO 0.03 K/mm3 (0.00-0.10); IMMATURE GRAN PERCENT AUTO 1 % (0-1); LYMPHOCYTES ABSOLUTE AUTO 1.77 K/mm3 (0.84-5.20); LYMPHOCYTES PERCENT AUTO 30 % (21-46); MONOCYTES ABSOLUTE AUTO 0.33 K/mm3 (0.16-1.47); MONOCYTES PERCENT AUTO 6 % (4-13); Mean Corpuscular HGB 28.5 pg (26.0-34.0); Mean Corpuscular HGB Conc 33.3 g/dL (31.5-36.5); Mean Corpuscular Volume 86 fL (80-100); Mean Platelet Volume 9.6 fL (9.1-12.4); NEUTROPHILS ABSOLUTE AUTO 3.65 K/mm3 (1.96-9.15); NEUTROPHILS PERCENT AUTO 62 % (41-73); Platelet Count 231 K/mm3 (150-400); RDW Coefficient Variation 12.1 % (11.7-14.2); RDW Standard Deviation 38.1 fL (35.1-46.3); Red Blood Cell Count 4.74 M/mm3 (3.80-5.20); White Blood Cell Count 5.91 K/mm3 (4.00-11.30)
[2024-09-05 20:33] LABS: Albumin, Blood 4.3 g/dL (3.4-5.0); Albumin/Globulin Ratio 1.7 (0.8-1.8); Bun/Creatinine Ratio 12.8 (12.0-20.0); Calcium, Blood 9.8 mg/dL (8.5-10.1); Creatinine, Blood 0.7 mg/dL (0.40-1.00); Globulin, Blood 2.5 g/dL (2.2-4.0); Potassium, Blood 3.9 mmol/L (3.5-5.5); Total Protein, Blood 6.8 g/dL (6.4-8.2)
[2024-09-05] MEDS ORDERED: NS 1,000 ML IV SCH (21:40)
[2024-09-05] MEDS ORDERED: Ondansetron HCl 2 MG / ML 2ML Vial IV ONE (21:40)
[2024-09-05] MEDS ORDERED: FentaNYL Citrate 50 MCG/ML 2 ML Injection IV ONE (21:40)
[2024-09-06] MEDS ORDERED: Ondansetron HCl 2 MG / ML 2ML Vial IV ONE (00:05)
[2024-09-06] MEDS ORDERED: Ketorolac Tromethamine 15mg Vial IV ONE (00:05)
[2024-09-06 00:47] VITALS: BP 117/90
[2024-09-06 00:49] LABS: Source, Urine Clean Catch
[2024-09-06 00:54] LABS: Bilirubin, Urine Neg (Neg); Blood, Urine Neg (Neg); Glucose Qualitative, Urine Neg (Neg); Ketones, Urine Neg (Neg); Leukocyte Esterase, Urine Neg (Neg); Nitrite, Urine Neg (Neg); Protein, Urine Neg (Neg); Urobilinogen, Urine NORM (Normal)
[2024-09-06 01:06] LABS: Appearance, Urine Clear (Clear); Color, Urine Yellow (P-Yellow)
== END 2024-09-06 00:57 | disposition home or self-care (01) ==
LOC: ER 19:05
PROVIDERS: Student in an Organized Health Care Education/Training Program
DX: R10.13 Epigastric pain (principal); R11.2 Nausea with vomiting, unspecified; Z88.8 Allergy status to other drugs, medicaments and biological substances; Z79.899 Other long term (current) drug therapy; F43.10 Post-traumatic stress disorder, unspecified; F17.290 Nicotine dependence, other tobacco product, uncomplicated
CPT/HCPCS: 74018; 80053; 81003; 83690; 85025; 96361; 96374; 96375; 96376; 99284-25; J1885; J2405; J3010; J7030

== ENCOUNTER 2024-09-22 13:12 | Observation (INO) | payer OTHER ==
[~2024-09-22] VITALS: Ht 149.9 cm; Wt 68.0 kg
[2024-09-22 14:47] LABS: Source, Urine Clean Catch
[2024-09-22 14:55] LABS: Appearance, Urine Clear (Clear); Bilirubin, Urine Neg (Neg); Blood, Urine Neg (Neg); Color, Urine Yellow (P-Yellow); Glucose Qualitative, Urine Neg (Neg); Ketones, Urine Neg (Neg); Leukocyte Esterase, Urine 1+ (Neg); Nitrite, Urine Neg (Neg); Protein, Urine Neg (Neg); Urobilinogen, Urine NORM (Normal)
[2024-09-22 15:12] LABS: Bacteria Many /hpf; Red Blood Cells, Urine 0-2 /hpf (0-2); Squamous Epithelial Cells Few /hpf (Few)
[2024-09-22 15:18] LABS: U Amphetamine Screen Not Detected; U Barbituate Screen DETECTED; U Benzodiazapine Screen Not Detected; U Buprenorphine Screen Not Detected; U Cannabinoids Screen Not Detected; U Cocaine Screen Not Detected; U Methadone Screen Not Detected; U Methamphetamine Screen Not Detected; U Opiates Screen Not Detected; U Oxycodone Screen Not Detected; U Phencyclidine Screen Not Detected
[2024-09-22 15:22] LABS: BASOPHILS ABSOLUTE AUTO 0.05 K/mm3 (0.00-0.23); BASOPHILS PERCENT AUTO 1 % (0-2); EOSINOPHILS ABSOLUTE AUTO 0.27 K/mm3 (0.00-0.68); EOSINOPHILS PERCENT AUTO 3 % (0-6); Hematocrit 42.4 % (33.0-51.0); Hemoglobin 14.2 g/dL (11.5-16.0); IMMATURE GRAN ABSOLUTE AUTO 0.03 K/mm3 (0.00-0.10); IMMATURE GRAN PERCENT AUTO 0 % (0-1); LYMPHOCYTES ABSOLUTE AUTO 1.94 K/mm3 (0.84-5.20); LYMPHOCYTES PERCENT AUTO 23 % (21-46); MONOCYTES ABSOLUTE AUTO 0.56 K/mm3 (0.16-1.47); MONOCYTES PERCENT AUTO 7 % (4-13); Mean Corpuscular HGB 28.4 pg (26.0-34.0); Mean Corpuscular HGB Conc 33.5 g/dL (31.5-36.5); Mean Corpuscular Volume 85 fL (80-100); Mean Platelet Volume 9.3 fL (9.1-12.4); NEUTROPHILS ABSOLUTE AUTO 5.75 K/mm3 (1.96-9.15); NEUTROPHILS PERCENT AUTO 67 % (41-73); Platelet Count 289 K/mm3 (150-400); RDW Coefficient Variation 12.5 % (11.7-14.2); RDW Standard Deviation 37.8 fL (35.1-46.3)
[2024-09-22 16:10] LABS: Ethanol (Alcohol), Blood, Med <3 mg/dL; Salicylate <1.7 mg/dL (2.8-20.0)
[2024-09-22 16:25] LABS: Acetaminophen, Random <2.0 ug/mL (10.0-30.0); Alanine Aminotransfer (ALT/SGP 59 U/L (12-78); Albumin, Blood 4.6 g/dL (3.4-5.0); Albumin/Globulin Ratio 1.6 (0.8-1.8); Alk Phos 92 U/L (50-136); Anion Gap 8 mmol/L (3-11); Aspartate Aminotrans (AST/SGOT 50 U/L (12-37); Bilirubin, Total 0.8 mg/dL (0.1-1.0); Blood Urea Nitrogen 8 mg/dL (8-24); Bun/Creatinine Ratio 13.1 (12.0-20.0); CO2, Blood 25 mmol/L (21-32); Calcium, Blood 9.6 mg/dL (8.5-10.1); Chloride, Blood 110 mmol/L (98-108); Creatinine, Blood 0.61 mg/dL (0.40-1.00); Globulin, Blood 2.9 g/dL (2.2-4.0); Glomerular Filtration Rate 123 (60-); Glucose, Blood 87 mg/dL (70-99); Potassium, Blood 3.8 mmol/L (3.5-5.5); Sodium, Blood 139 mmol/L (136-145); Total Protein, Blood 7.5 g/dL (6.4-8.2)
[2024-09-22] MEDS ORDERED: Metoclopramide HCl 10 MG Tab PO ONE (20:35)
[2024-09-22] MEDS ORDERED: Ibuprofen 400 MG Tab PO ONE (20:35)
[2024-09-22] MEDS ORDERED: Gabapentin 300 MG Cap PO STA (22:39)
[2024-09-22] MEDS ORDERED: ClonazePAM 1 MG Tab PO ONE (22:40)
[2024-09-22 23:03] LABS: Lithium 0.71 mmol/L (0.60-1.20)
[2024-09-23] MEDS ORDERED: Lithium Carbonate 300 MG Cap PO ONE (00:20)
[2024-09-23 10:59] VITALS: BP 108/79
[2024-09-24] MEDS ORDERED: ClonazePAM 1 MG Tab PO SCH (09:00)
[2024-09-24] MEDS ORDERED: Gabapentin 300 MG Cap PO SCH (09:00)
== END 2024-09-23 10:59 | disposition home or self-care (01) ==
LOC: ER 13:12 → EOR 13:13
PROVIDERS: Student in an Organized Health Care Education/Training Program; ADMIT Student in an Organized Health Care Education/Training Program
DX: T42.4X2A Poisoning by benzodiazepines, intentional self-harm, initial encounter (principal); F25.0 Schizoaffective disorder, bipolar type; F43.10 Post-traumatic stress disorder, unspecified; R56.9 Unspecified convulsions; R45.87 Impulsiveness; F17.290 Nicotine dependence, other tobacco product, uncomplicated; Z79.899 Other long term (current) drug therapy
CPT/HCPCS: 80053; 80178; 80320; 81001; 81025; 85025; 87086; 93005; 93010; 99285-25; A9270; G0378; G0480

== ENCOUNTER 2024-10-22 17:58 | Emergency (ER) | payer OTHER ==
[~2024-10-22] VITALS: Ht 149.9 cm; Wt 67.1 kg
[2024-10-22 18:07] VITALS: BP 108/90
[2024-10-22] MEDS ORDERED: Morphine Sulfate 4 MG/1 ML Injection IV ONE (18:15)
[2024-10-22] MEDS ORDERED: Ondansetron HCl 2 MG / ML 2ML Vial IV ONE (18:15)
[2024-10-22] MEDS ORDERED: NS 1,000 ML IV SCH (18:15)
[2024-10-22 19:09] LABS: Bun/Creatinine Ratio 25.9 (12.0-20.0); Calcium, Blood 9.7 mg/dL (8.5-10.1); Creatinine, Blood 0.66 mg/dL (0.40-1.00); Potassium, Blood 3.8 mmol/L (3.5-5.5)
[2024-10-22 19:12] LABS: BASOPHILS ABSOLUTE AUTO 0.05 K/mm3 (0.00-0.23); BASOPHILS PERCENT AUTO 1 % (0-2); EOSINOPHILS ABSOLUTE AUTO 0.21 K/mm3 (0.00-0.68); EOSINOPHILS PERCENT AUTO 2 % (0-6); Hematocrit 40.5 % (33.0-51.0); Hemoglobin 13.9 g/dL (11.5-16.0); IMMATURE GRAN ABSOLUTE AUTO 0.03 K/mm3 (0.00-0.10); IMMATURE GRAN PERCENT AUTO 0 % (0-1); LYMPHOCYTES ABSOLUTE AUTO 2.45 K/mm3 (0.84-5.20); LYMPHOCYTES PERCENT AUTO 24 % (21-46); MONOCYTES ABSOLUTE AUTO 0.68 K/mm3 (0.16-1.47); MONOCYTES PERCENT AUTO 7 % (4-13); Mean Corpuscular HGB 28.3 pg (26.0-34.0); Mean Corpuscular HGB Conc 34.3 g/dL (31.5-36.5); Mean Corpuscular Volume 83 fL (80-100); Mean Platelet Volume 9.8 fL (9.1-12.4); NEUTROPHILS ABSOLUTE AUTO 6.96 K/mm3 (1.96-9.15); NEUTROPHILS PERCENT AUTO 67 % (41-73); Platelet Count 295 K/mm3 (150-400); RDW Coefficient Variation 12.9 % (11.7-14.2); RDW Standard Deviation 38.7 fL (35.1-46.3); Red Blood Cell Count 4.91 M/mm3 (3.80-5.20); White Blood Cell Count 10.38 K/mm3 (4.00-11.30)
[2024-10-22 19:18] LABS: Albumin, Blood 4.3 g/dL (3.4-5.0); Albumin/Globulin Ratio 1.5 (0.8-1.8); Bilirubin, Total 0.7 mg/dL (0.1-1.0); Bun/Creatinine Ratio 21.9 (12.0-20.0); Calcium, Blood 9.8 mg/dL (8.5-10.1); Creatinine, Blood 0.78 mg/dL (0.40-1.00); Globulin, Blood 2.8 g/dL (2.2-4.0); Potassium, Blood 3.9 mmol/L (3.5-5.5); Total Protein, Blood 7.1 g/dL (6.4-8.2)
[2024-10-22] MEDS ORDERED: ACET500 PO (22:02)
[2024-10-22] MEDS ORDERED: IBUP600 PO (22:02)
== END 2024-10-22 22:17 | disposition home or self-care (01) ==
LOC: ER 17:58
PROVIDERS: Emergency Medicine
DX: R55 Syncope and collapse (principal); S00.83XA Contusion of other part of head, initial encounter; Z88.8 Allergy status to other drugs, medicaments and biological substances; Z79.899 Other long term (current) drug therapy; F43.10 Post-traumatic stress disorder, unspecified; F17.290 Nicotine dependence, other tobacco product, uncomplicated; W22.8XXA Striking against or struck by other objects, initial encounter
CPT/HCPCS: 70450; 72125; 80048; 80053; 81025; 83690; 83735; 85025; 93005; 93010; 99284-25

== ENCOUNTER 2024-11-20 14:49 | Emergency (ER) | payer OTHER ==
[~2024-11-20] VITALS: Ht 149.9 cm; Wt 69.4 kg
[~2024-11-20 14:49] MED LIST changes: +ACET500 PO; +IBUP600 PO
[2024-11-20] MEDS ORDERED: VRAYLAR1.5 MG PO (15:04)
[2024-11-20] MEDS ORDERED: [UNRECOGNIZED DRUG - CODE] PO (15:04)
[2024-11-20] MEDS ORDERED: NS 1,000 ML IV SCH (15:35)
[2024-11-20] MEDS ORDERED: Ondansetron HCl 2 MG / ML 2ML Vial IV ONE (15:35)
[2024-11-20 15:49] LABS: BASOPHILS ABSOLUTE AUTO 0.06 K/mm3 (0.00-0.23); BASOPHILS PERCENT AUTO 1 % (0-2); EOSINOPHILS ABSOLUTE AUTO 0.17 K/mm3 (0.00-0.68); EOSINOPHILS PERCENT AUTO 1 % (0-6); Hematocrit 41.8 % (33.0-51.0); Hemoglobin 14.3 g/dL (11.5-16.0); IMMATURE GRAN ABSOLUTE AUTO 0.05 K/mm3 (0.00-0.10); IMMATURE GRAN PERCENT AUTO 0 % (0-1); LYMPHOCYTES ABSOLUTE AUTO 2.42 K/mm3 (0.84-5.20); LYMPHOCYTES PERCENT AUTO 20 % (21-46); MONOCYTES ABSOLUTE AUTO 0.71 K/mm3 (0.16-1.47); MONOCYTES PERCENT AUTO 6 % (4-13); Mean Corpuscular HGB 28.5 pg (26.0-34.0); Mean Corpuscular HGB Conc 34.2 g/dL (31.5-36.5); Mean Corpuscular Volume 83 fL (80-100); Mean Platelet Volume 9.5 fL (9.1-12.4); NEUTROPHILS PERCENT AUTO 71 % (41-73); Platelet Count 292 K/mm3 (150-400); RDW Coefficient Variation 12.8 % (11.7-14.2); RDW Standard Deviation 38.5 fL (35.1-46.3); Red Blood Cell Count 5.01 M/mm3 (3.80-5.20); White Blood Cell Count 11.91 K/mm3 (4.00-11.30)
[2024-11-20 16:37] LABS: Alanine Aminotransfer (ALT/SGP 24 U/L (12-78); Albumin, Blood 4.2 g/dL (3.4-5.0); Albumin/Globulin Ratio 1.4 (0.8-1.8); Alk Phos 93 U/L (50-136); Anion Gap 7 mmol/L (3-11); Aspartate Aminotrans (AST/SGOT 9 U/L (12-37); Beta HCG, Quantitative, Serum <1 mIU/mL (0-3); Bilirubin, Total 0.8 mg/dL (0.1-1.0); Blood Urea Nitrogen 7 mg/dL (8-24); Bun/Creatinine Ratio 12.2 (12.0-20.0); CO2, Blood 25 mmol/L (21-32); Calcium, Blood 9.3 mg/dL (8.5-10.1); Chloride, Blood 109 mmol/L (98-108); Creatinine, Blood 0.58 mg/dL (0.40-1.00); Globulin, Blood 2.9 g/dL (2.2-4.0); Glomerular Filtration Rate 124 (60-); Glucose, Blood 95 mg/dL (70-99); Potassium, Blood 3.6 mmol/L (3.5-5.5); Sodium, Blood 137 mmol/L (136-145); Total Protein, Blood 7.1 g/dL (6.4-8.2)
[2024-11-20] MEDS ORDERED: Ketorolac Tromethamine 15mg Vial IV ONE (16:50)
[2024-11-20] MEDS ORDERED: Cyclobenzaprine HCl 10 MG Tab PO ONE (17:15)
[2024-11-20] MEDS ORDERED: CYCLOBENZAPRINE5 MG PO (17:18)
[2024-11-20] MEDS ORDERED: IBUP600 PO (17:18)
[2024-11-20] MEDS ORDERED: ONDA4ODT MM (17:18)
[2024-11-20 17:25] LABS: Source, Urine Clean Catch
[2024-11-20 17:42] VITALS: BP 124/76
[2024-11-20 18:04] LABS: Appearance, Urine Hazy (Clear); Bilirubin, Urine Neg (Neg); Blood, Urine Neg (Neg); Color, Urine Yellow (P-Yellow); Glucose Qualitative, Urine Neg (Neg); Ketones, Urine Neg (Neg); Leukocyte Esterase, Urine Neg (Neg); Nitrite, Urine Neg (Neg); Protein, Urine 1+ (Neg); Specific Gravity, Urine 1.025 (1.003-1.022); Urobilinogen, Urine NORM (Normal)
[2024-11-20 18:26] LABS: Bacteria Rare /hpf; Mucus Mod (0-Heavy); Red Blood Cells, Urine 0-2 /hpf (0-2); Squamous Epithelial Cells Few /hpf (Few); White Blood Cells, Urine 0-2 /hpf (0-5)
== END 2024-11-20 17:50 | disposition home or self-care (01) ==
LOC: ER 14:49
PROVIDERS: Student in an Organized Health Care Education/Training Program
DX: S16.1XXA Strain of muscle, fascia and tendon at neck level, initial encounter (principal); S00.03XA Contusion of scalp, initial encounter; R55 Syncope and collapse; G47.30 Sleep apnea, unspecified; F43.10 Post-traumatic stress disorder, unspecified; F17.290 Nicotine dependence, other tobacco product, uncomplicated; W18.30XA Fall on same level, unspecified, initial encounter; Z79.899 Other long term (current) drug therapy; Z88.8 Allergy status to other drugs, medicaments and biological substances
CPT/HCPCS: 80053; 81001; 84484; 84702; 85025; 93005; 93010; 96361; 96374; 96375; 99284-25; A9270; J1885; J2405; J7030

== ENCOUNTER 2024-12-18 21:47 | Emergency (ER) | payer OTHER ==
[~2024-12-18] VITALS: Ht 149.9 cm; Wt 69.8 kg
[~2024-12-18 21:47] MED LIST changes: +CYCLOBENZAPRINE5 MG PO; +VRAYLAR1.5 MG PO; +[UNRECOGNIZED DRUG - CODE] PO
[2024-12-18 21:57] VITALS: BP 127/81
[2024-12-18] MEDS ORDERED: Ondansetron HCl 2 MG / ML 2ML Vial IV ONE (22:20)
[2024-12-18] MEDS ORDERED: Ondansetron 4 MG SoluTab SL ONE (23:05)
[2024-12-18 23:23] LABS: BASOPHILS ABSOLUTE AUTO 0.04 K/mm3 (0.00-0.23); BASOPHILS PERCENT AUTO 1 % (0-2); EOSINOPHILS ABSOLUTE AUTO 0.35 K/mm3 (0.00-0.68); EOSINOPHILS PERCENT AUTO 4 % (0-6); Hematocrit 37.2 % (33.0-51.0); Hemoglobin 12.5 g/dL (11.5-16.0); IMMATURE GRAN ABSOLUTE AUTO 0.02 K/mm3 (0.00-0.10); IMMATURE GRAN PERCENT AUTO 0 % (0-1); LYMPHOCYTES ABSOLUTE AUTO 2.21 K/mm3 (0.84-5.20); LYMPHOCYTES PERCENT AUTO 28 % (21-46); MONOCYTES ABSOLUTE AUTO 0.62 K/mm3 (0.16-1.47); MONOCYTES PERCENT AUTO 8 % (4-13); Mean Corpuscular HGB Conc 33.6 g/dL (31.5-36.5); Mean Corpuscular Volume 86 fL (80-100); NEUTROPHILS ABSOLUTE AUTO 4.69 K/mm3 (1.96-9.15); NEUTROPHILS PERCENT AUTO 59 % (41-73); NRBC ABSOLUTE 0.00 K/mm3 (0.00-0.02); NRBC Auto 0.0 /100 WBC (0.0-0.2); Platelet Count 245 K/mm3 (150-400); RDW Coefficient Variation 12.6 % (11.7-14.2); RDW Standard Deviation 39.4 fL (35.1-46.3)
[2024-12-18 23:44] LABS: Alanine Aminotransfer (ALT/SGP 32.0 U/L (12-78); Albumin, Blood 3.5 g/dL (3.4-5.0); Albumin/Globulin Ratio 1.1 (0.8-1.8); Anion Gap 4.0 mmol/L (3-11); Aspartate Aminotrans (AST/SGOT 12.0 U/L (12-37); Bilirubin, Total 0.6 mg/dL (0.1-1.0); Blood Urea Nitrogen 11.0 mg/dL (8-24); CO2, Blood 29.0 mmol/L (21-32); Calcium, Blood 9.0 mg/dL (8.5-10.1); Chloride, Blood 110.0 mmol/L (98-108); Creatinine, Blood 0.55 mg/dL (0.40-1.00); Globulin, Blood 3.2 g/dL (2.2-4.0); Glucose, Blood 104.0 mg/dL (70-99); Potassium, Blood 3.7 mmol/L (3.5-5.5); Sodium, Blood 139.0 mmol/L (136-145); Total Protein, Blood 6.7 g/dL (6.4-8.2)
[2024-12-19] MEDS ORDERED: Ketorolac Tromethamine 15mg Vial IM ONE (00:05)
[2024-12-19] MEDS ORDERED: ONDA4ODT MM (00:24)
[2024-12-19] MEDS ORDERED: CYCL10 PO (00:24)
[2024-12-19] MEDS ORDERED: PROM12.5S PR (00:24)
[2024-12-19] MEDS ORDERED: RX Prepack 2 Tabs Ondansetron ODT 4MG UD ONE (00:30)
== END 2024-12-19 00:41 | disposition home or self-care (01) ==
LOC: ER 21:47
PROVIDERS: Student in an Organized Health Care Education/Training Program
DX: S06.9X9A Unspecified intracranial injury with loss of consciousness of unspecified duration, initial encounter (principal); R11.2 Nausea with vomiting, unspecified; G47.00 Insomnia, unspecified; F43.10 Post-traumatic stress disorder, unspecified; W01.0XXA Fall on same level from slipping, tripping and stumbling without subsequent striking against object, initial encounter; Z87.891 Personal history of nicotine dependence; Z79.899 Other long term (current) drug therapy; Z88.8 Allergy status to other drugs, medicaments and biological substances
CPT/HCPCS: 36415; 70450; 72125; 80053; 83690; 84484; 84703; 85025; 93005; 93010; 96372; 99284-25; A9270; J1885

== ENCOUNTER 2025-01-15 12:02 | Emergency (ER) | payer OTHER ==
[~2025-01-15] VITALS: Ht 165.1 cm; Wt 73.9 kg
[~2025-01-15 12:02] MED LIST changes: +CYCL10 PO
[2025-01-15 12:37] LABS: BASOPHILS ABSOLUTE AUTO 0.05 K/mm3 (0.00-0.23); BASOPHILS PERCENT AUTO 1 % (0-2); EOSINOPHILS ABSOLUTE AUTO 0.22 K/mm3 (0.00-0.68); EOSINOPHILS PERCENT AUTO 3 % (0-6); Hematocrit 41.6 % (33.0-51.0); Hemoglobin 14.0 g/dL (11.5-16.0); IMMATURE GRAN ABSOLUTE AUTO 0.03 K/mm3 (0.00-0.10); IMMATURE GRAN PERCENT AUTO 0 % (0-1); LYMPHOCYTES ABSOLUTE AUTO 2.54 K/mm3 (0.84-5.20); LYMPHOCYTES PERCENT AUTO 33 % (21-46); MONOCYTES ABSOLUTE AUTO 0.44 K/mm3 (0.16-1.47); MONOCYTES PERCENT AUTO 6 % (4-13); Mean Corpuscular HGB Conc 33.7 g/dL (31.5-36.5); Mean Corpuscular Volume 84 fL (80-100); NEUTROPHILS ABSOLUTE AUTO 4.37 K/mm3 (1.96-9.15); NEUTROPHILS PERCENT AUTO 57 % (41-73); NRBC ABSOLUTE 0.00 K/mm3 (0.00-0.02); NRBC Auto 0.0 /100 WBC (0.0-0.2); Platelet Count 289 K/mm3 (150-400); RDW Coefficient Variation 12.5 % (11.7-14.2); RDW Standard Deviation 37.7 fL (35.1-46.3)
[2025-01-15 12:44] LABS: Source, Urine Clean Catch
[2025-01-15 12:47] LABS: Bilirubin, Urine Neg (Neg); Color, Urine Yellow (P-Yellow); Glucose Qualitative, Urine Neg (Neg); Ketones, Urine Neg (Neg); Leukocyte Esterase, Urine Neg (Neg); Protein, Urine Neg (Neg); Specific Gravity, Urine 1.015 (1.003-1.022); Urobilinogen, Urine NORM (Normal)
[2025-01-15 13:12] LABS: Alanine Aminotransfer (ALT/SGP 47.0 U/L (12-78); Albumin, Blood 4.2 g/dL (3.4-5.0); Albumin/Globulin Ratio 1.4 (0.8-1.8); Anion Gap 7.0 mmol/L (3-11); Aspartate Aminotrans (AST/SGOT 18.0 U/L (12-37); Bilirubin, Total 0.7 mg/dL (0.1-1.0); Blood Urea Nitrogen 9.0 mg/dL (8-24); CO2, Blood 26.0 mmol/L (21-32); Calcium, Blood 9.1 mg/dL (8.5-10.1); Chloride, Blood 111.0 mmol/L (98-108); Creatinine, Blood 0.55 mg/dL (0.40-1.00); Globulin, Blood 3.0 g/dL (2.2-4.0); Glucose, Blood 128.0 mg/dL (70-99); Potassium, Blood 3.7 mmol/L (3.5-5.5); Sodium, Blood 140.0 mmol/L (136-145); Total Protein, Blood 7.2 g/dL (6.4-8.2)
[2025-01-15] MEDS ORDERED: Prochlorperazine Edisylate 10 mg Vial IV ONE (14:10)
[2025-01-15] MEDS ORDERED: Ketorolac Tromethamine 15mg Vial IV ONE (14:10)
[2025-01-15] MEDS ORDERED: NS 1,000 ML IV SCH (14:10)
[2025-01-15] MEDS ORDERED: DiphenhydrAMINE HCl 50 MG/ML 1ML Vial IV ONE (14:15)
[2025-01-15] MEDS ORDERED: Lidocaine 2% Viscous Soln 15 ML UDC PO ONE (14:50)
[2025-01-15 16:30] VITALS: BP 149/102
== END 2025-01-15 15:40 | disposition home or self-care (01) ==
LOC: ER 12:02
PROVIDERS: Physician Assistant
DX: G40.909 Epilepsy, unspecified, not intractable, without status epilepticus (principal); G43.909 Migraine, unspecified, not intractable, without status migrainosus; Z88.8 Allergy status to other drugs, medicaments and biological substances; Z79.899 Other long term (current) drug therapy; F43.10 Post-traumatic stress disorder, unspecified; Z87.891 Personal history of nicotine dependence
CPT/HCPCS: 80053; 81003; 82272; 84703; 85025; 93005; 93010; 96361; 96374; 96375; 99284-25; A9270; J0780; J1200; J1885; J7030

== ENCOUNTER 2025-03-16 11:30 | Emergency (ER) | payer OTHER ==
[~2025-03-16] VITALS: Ht 149.9 cm; Wt 76.2 kg
[2025-03-16] MEDS ORDERED: AMPDEX10CR PO (11:57)
[2025-03-16] MEDS ORDERED: ESZO3 (11:58)
[2025-03-16] MEDS ORDERED: RIZATRIPTAN10 MG (11:58)
[2025-03-16] MEDS ORDERED: BUTALB-ACETAMI1 EAC7 (11:59)
[2025-03-16] MEDS ORDERED: Dexamethasone Sod Phos 10 MG/ML 1ML VIAL IV ONE (12:30)
[2025-03-16] MEDS ORDERED: Prochlorperazine Edisylate 10 mg Vial IV ONE (12:30)
[2025-03-16] MEDS ORDERED: DiphenhydrAMINE HCl 50 MG/ML 1ML Vial IV ONE (12:30)
[2025-03-16] MEDS ORDERED: NS 1,000 ML IV SCH (12:30)
[2025-03-16] MEDS ORDERED: Ketorolac Tromethamine 15mg Vial IV ONE (13:10)
[2025-03-16 14:30] VITALS: BP 102/71
== END 2025-03-16 14:38 | disposition home or self-care (01) ==
LOC: ER 11:30
DX: G43.909 Migraine, unspecified, not intractable, without status migrainosus (principal); R56.9 Unspecified convulsions; F31.9 Bipolar disorder, unspecified; Z88.8 Allergy status to other drugs, medicaments and biological substances; Z79.899 Other long term (current) drug therapy; Z87.891 Personal history of nicotine dependence
CPT/HCPCS: 81025; 93005; 93010; 96361; 96374; 96375; 99284-25; A9270; J0780; J1100; J1200; J1885; J7030

== ENCOUNTER 2025-05-23 17:31 | Emergency (ER) | payer OTHER ==
[~2025-05-23] VITALS: Ht 149.9 cm; Wt 80.3 kg
[~2025-05-23 17:31] MED LIST changes: +AMPDEX10CR PO; +BUTALB-ACETAMI1 EAC7; +ESZO3; +RIZATRIPTAN10 MG
[2025-05-23] MEDS ORDERED: Metoclopramide HCl 5MG / ML 2ML Vial IV ONE (18:55)
[2025-05-23] MEDS ORDERED: Ketorolac Tromethamine 15mg Vial IV ONE (18:55)
[2025-05-23 18:56] LABS: Source, Urine Clean Catch
[2025-05-23 19:00] LABS: BASOPHILS ABSOLUTE AUTO 0.07 K/mm3 (0.00-0.23); BASOPHILS PERCENT AUTO 1 % (0-2); EOSINOPHILS ABSOLUTE AUTO 0.37 K/mm3 (0.00-0.68); EOSINOPHILS PERCENT AUTO 3 % (0-6); Hematocrit 44.0 % (33.0-51.0); Hemoglobin 14.9 g/dL (11.5-16.0); IMMATURE GRAN ABSOLUTE AUTO 0.08 K/mm3 (0.00-0.10); IMMATURE GRAN PERCENT AUTO 1 % (0-1); LYMPHOCYTES ABSOLUTE AUTO 3.06 K/mm3 (0.84-5.20); LYMPHOCYTES PERCENT AUTO 27 % (21-46); MONOCYTES ABSOLUTE AUTO 0.87 K/mm3 (0.16-1.47); MONOCYTES PERCENT AUTO 8 % (4-13); Mean Corpuscular HGB Conc 33.9 g/dL (31.5-36.5); Mean Corpuscular Volume 85 fL (80-100); NEUTROPHILS ABSOLUTE AUTO 6.73 K/mm3 (1.96-9.15); NEUTROPHILS PERCENT AUTO 60 % (41-73); NRBC ABSOLUTE 0.00 K/mm3 (0.00-0.02); NRBC Auto 0.0 /100 WBC (0.0-0.2); Platelet Count 306 K/mm3 (150-400); RDW Coefficient Variation 12.8 % (11.7-14.2); RDW Standard Deviation 39.7 fL (35.1-46.3)
[2025-05-23 19:03] LABS: Bilirubin, Urine Neg (Neg); Color, Urine Yellow (P-Yellow); Glucose Qualitative, Urine Neg (Neg); Ketones, Urine Neg (Neg); Leukocyte Esterase, Urine 1+ (Neg); Protein, Urine 1+ (Neg); Specific Gravity, Urine 1.010 (1.003-1.022); Urobilinogen, Urine 1+ (Normal)
[2025-05-23 19:09] LABS: Red Blood Cells, Urine 0-2 /hpf (0-2)
[2025-05-23 19:12] LABS: Alanine Aminotransfer (ALT/SGP 53.0 U/L (12-78); Albumin, Blood 4.3 g/dL (3.4-5.0); Albumin/Globulin Ratio 1.5 (0.8-1.8); Anion Gap 9.0 mmol/L (3-11); Aspartate Aminotrans (AST/SGOT 19.0 U/L (12-37); Bilirubin, Total 0.8 mg/dL (0.1-1.0); Blood Urea Nitrogen 8.0 mg/dL (8-24); CO2, Blood 25.0 mmol/L (21-32); Calcium, Blood 9.3 mg/dL (8.5-10.1); Chloride, Blood 110.0 mmol/L (98-108); Creatinine, Blood 0.83 mg/dL (0.40-1.00); Globulin, Blood 2.9 g/dL (2.2-4.0); Glucose, Blood 109.0 mg/dL (70-99); Potassium, Blood 3.8 mmol/L (3.5-5.5); Sodium, Blood 140.0 mmol/L (136-145); Total Protein, Blood 7.2 g/dL (6.4-8.2)
[2025-05-23] MEDS ORDERED: CEPH500 PO (20:22)
[2025-05-23 20:30] VITALS: BP 128/78
== END 2025-05-23 20:45 | disposition home or self-care (01) ==
LOC: ER 17:31
PROVIDERS: Student in an Organized Health Care Education/Training Program
DX: G43.909 Migraine, unspecified, not intractable, without status migrainosus (principal); N30.00 Acute cystitis without hematuria; Z87.891 Personal history of nicotine dependence; Z88.8 Allergy status to other drugs, medicaments and biological substances; Z79.899 Other long term (current) drug therapy
CPT/HCPCS: 80053; 81001; 81025; 85025; 87086; 93005; 93010; 96361; 96374; 96375; 99284-25; A9270; J1885; J2765; J7120